=== PATIENT | male | born 1965 | race Caucasian/White ===

== ENCOUNTER 2020-07-05 09:28 | Outpatient (REF) | payer OTHER, SELFPAY | END 2020-07-05 09:29 | disposition home or self-care (01) | LOC: HO.WFDLDS 09:28 | PROVIDERS: Visit Provider Internal Medicine | DX: Z20.828 Contact with and (suspected) exposure to other viral communicable diseases (principal) | CPT/HCPCS: 87635 ==

== ENCOUNTER 2020-09-15 07:35 | Outpatient (REF) | payer OTHER, SELFPAY ==
[2020-09-15 08:34] LABS: MANUAL DIFF FLAG NO
[2020-09-15 08:38] LABS: Basophils Percent Auto 0.5 % (0-2); Eosinophils Absolute Auto 0.2 X10*3/uL (0.0-0.4); Eosinophils Percent Auto 3.1 % (0-4); Hematocrit 46.7 % (42-52); Hemoglobin 15.4 g/dl (14.0-18.0); Imm Gran Abs Auto 0.06 X10*3/uL (0.00-0.03); Lymphocytes Absolute Auto 1.9 X10*3/uL (1.2-4.9); Lymphocytes Percent Auto 31.1 % (20-40); Mean Corpuscular Volume 94.2 fL (80-98); Mean Platelet Volume 9.3 fL (9.4-12.4); Monocytes Absolute Auto 0.6 X10*3/uL (0.1-1.2); Monocytes Percent Auto 9.9 % (2-11); Neutrophils Absolute Auto 3.3 X10*3/uL (2.0-8.3); Neutrophils Percent Auto 54.4 % (45-73); Platelet Count 293 X10*3/uL (160-400); Red Blood Count 4.96 X10*6/uL (4.60-5.80); Red Cell Distribution Width 12.7 % (11.0-16.0); White Blood Count 6.1 X10*3/uL (4.8-10.8)
[2020-09-15 09:08] LABS: Alanine Aminotransferase 71 U/L (0-40); Albumin Level 4.4 g/dL (3.5-5.0); Alkaline Phosphatase 60 U/L (39-117); Anion Gap 11 (12-20); Aspartate Amino Transferase 43 U/L (5-37); Bilirubin Total 0.6 mg/dL (0.0-1.0); Blood Urea Nitrogen 18 mg/dL (9-16); Calcium 9.1 mg/dL (8.4-10.2); Carbon Dioxide 28 mmol/L (22-29); Chloride 104 mmol/L (96-108); Cholesterol 225 mg/dL; Estimated Glomerular Filt Rate > 60; Glucose Random 101 mg/dL (60-115); HDL Cholesterol 54 mg/dL; LDL Cholesterol Calculated 139 mg/dl; Potassium 4.7 mmol/l (3.3-5.1); Sodium 138 mmol/L (135-145); Total Protein 7.1 g/dL (6.5-8.0); Triglycerides 163 mg/dL
[2020-09-15 09:30] LABS: Free T4 (Free Thyroxine) 0.84 ng/dL (0.71-1.85); Prostate Specific Antigen Scr 1.58 ng/mL (<0.05-4.0)
[2020-09-15 10:53] LABS: Folate 15.9 ng/mL (> or = 4.0); Vitamin B12 284 pg/mL (200-900)
== END 2020-09-15 07:36 | disposition home or self-care (01) ==
LOC: HO.LAB 07:35
PROVIDERS: PCP Internal Medicine; Visit Provider Internal Medicine
DX: E78.00 Pure hypercholesterolemia, unspecified (principal)
CPT/HCPCS: 36415; 80053; 80061; 82607; 82746; 84153; 84439; 84443; 85025

== ENCOUNTER → 2020-10-12 10:18 | Outpatient (REF) | payer OTHER, SELFPAY ==
--- NOTE | 2020-10-12 10:25 | XR_ITS ---
EXAMINATION: XR CHEST CLINICAL INFORMATION: Shortness of breath COMPARISON: None TECHNIQUE: 2 views of the chest were obtained. FINDINGS: No significant abnormality is noted involving the heart, lungs, mediastinum, bony thorax or soft tissues. XR/XR chest 2V IMPRESSION: Unremarkable chest examination.
--- NOTE | 2020-10-12 10:41 | ECG_ITS ---
Test Reason : CP Blood Pressure : / mmHG Vent. Rate : 072 BPM Atrial Rate : 072 BPM P-R Int : 142 ms QRS Dur : 086 ms QT Int : 404 ms P-R-T Axes : 056 016 022 degrees QTc Int : 442 ms Normal sinus rhythm Normal ECG When compared with ECG of 08-APR-2018 09:58, No significant change was found Referred By: Yenni Henderson Electronically Signed By:ERNESTINE ERAZO
== END ==
LOC: HO.CARD 10:18
PROVIDERS: Visit Provider Internal Medicine
DX: R06.02 Shortness of breath (principal)
CPT/HCPCS: 71046; 93005

== ENCOUNTER 2020-10-21 15:57 | Outpatient (REF) | payer OTHER, SELFPAY ==
--- NOTE | 2020-10-21 | PFT_ITS ---
FLOWS: FEV1 101% of predicted at 3.60 L. FVC 95% of predicted at 4.39 L. FEV1 to FVC ratio of 0.82. No bronchodilator response. LUNG VOLUMES: Total lung capacity 100% of predicted at 6.58 L. Residual volume 101% of predicted at 2.05 L. Slow vital capacity 99% of predicted at 4.53 L. Expiratory reserve volume 42% of predicted at 0.56 L. Diffusion capacity is normal. IMPRESSION: No obstructive or restrictive ventilatory defect. No bronchodilator response. Essentially normal pulmonary function test. MD [facility] / [id number]
== END 2020-10-21 15:58 | disposition home or self-care (01) ==
LOC: HO.RESP 15:57
PROVIDERS: Visit Provider Internal Medicine
DX: R06.02 Shortness of breath (principal)
CPT/HCPCS: 94060; 94727; 94729

== ENCOUNTER → 2020-10-29 08:43 | Outpatient (REF) | payer OTHER, SELFPAY ==
--- NOTE | 2020-10-29 08:46 | CA_ITS ---
Acquisition Time: 2020-10-29 09:55:49 Total Exercise Time: 00:10:02 Test Indications: Dyspnea Medications: ROSUVASTATIN Protocol: CM Max HR: 160 BPM 96% of Pred: 166 BPM Max BP: 158/086 mmHG Max Work Load: 11.7 METS Exercise stress test with exercise 10 min 2 sec of Cm protocol, without anginal symptoms, without arrythmia, with normotensive response to exercise, without EKG changes meeting criteria for ischemia. Test reviewed with Dr Lundberg. Referred By: Yenni Henderson Overread By: JANET HODGE
== END ==
LOC: HO.CARD 08:43
PROVIDERS: PCP Internal Medicine; Visit Provider Internal Medicine
DX: R06.02 Shortness of breath (principal)
CPT/HCPCS: 93017

== ENCOUNTER → 2020-11-24 15:44 | Outpatient (BNVA) | payer OTHER, SELFPAY | PROVIDERS: PCP Internal Medicine; Visit Provider Internal Medicine ==

== ENCOUNTER 2021-01-05 07:38 | Outpatient (REF) | payer OTHER, SELFPAY ==
[2021-01-05 08:40] LABS: Alanine Aminotransferase 71 U/L (0-40); Albumin Level 4.4 g/dL (3.5-5.0); Alkaline Phosphatase 61 U/L (39-117); Anion Gap 13 (12-20); Aspartate Amino Transferase 37 U/L (5-37); Bilirubin Total 0.6 mg/dL (0.0-1.0); Blood Urea Nitrogen 19 mg/dL (9-16); Calcium 9.4 mg/dL (8.4-10.2); Carbon Dioxide 27 mmol/L (22-29); Chloride 106 mmol/L (96-108); Cholesterol 210 mg/dL; Estimated Glomerular Filt Rate > 60; Glucose Random 112 mg/dL (60-115); HDL Cholesterol 56 mg/dL; LDL Cholesterol Calculated 127 mg/dl; Potassium 4.7 mmol/L (3.3-5.1); Sodium 141 mmol/L (135-145); Total Protein 6.9 g/dL (6.5-8.0); Triglycerides 135 mg/dL
[2021-01-05 09:29] LABS: Estimated Average Glucose 114 mg/dL; Hemoglobin A1c % 5.6 %
== END 2021-01-05 07:39 | disposition home or self-care (01) ==
LOC: HO.LAB 07:38
PROVIDERS: PCP Internal Medicine; Visit Provider Internal Medicine
DX: R73.01 Impaired fasting glucose (principal); E78.00 Pure hypercholesterolemia, unspecified
CPT/HCPCS: 36415; 80053; 80061; 83036

== ENCOUNTER 2021-08-29 09:14 | Outpatient (REF) | payer OTHER, SELFPAY ==
[2021-08-29 09:27] LABS: MANUAL DIFF FLAG NO
[2021-08-29 09:54] LABS: Basophils Percent Auto 0.6 % (0-2); Eosinophils Absolute Auto 0.2 X10*3/uL (0.0-0.4); Eosinophils Percent Auto 2.8 % (0-4); Hematocrit 45.4 % (42.0-52.0); Hemoglobin 14.5 g/dl (14.0-18.0); Imm Gran Abs Auto 0.03 X10*3/uL (0.00-0.03); Imm Gran Pct Auto 0.4 % (0.0-0.4); Lymphocytes Absolute Auto 1.8 X10*3/uL (1.2-4.9); Lymphocytes Percent Auto 26.3 % (20-40); Mean Corpuscular HGB Conc 31.9 g/dl (31.0-36.0); Mean Corpuscular Hemoglobin 30.1 pg (27.0-33.0); Mean Corpuscular Volume 94.2 fL (80.0-98.0); Mean Platelet Volume 9.2 fL (9.4-12.4); Monocytes Absolute Auto 0.7 X10*3/uL (0.1-1.2); Monocytes Percent Auto 9.5 % (2-11); Neutrophils Absolute Auto 4.2 x10*3/uL (2.0-8.3); Neutrophils Percent Auto 60.4 % (45-73); Platelet Count 347 X10*3/uL (160-400); Red Blood Count 4.82 X10*6/uL (4.60-5.80); Red Cell Distribution Width 12.5 % (11.0-16.0); White Blood Count 6.9 X10*3/uL (4.8-10.8)
[2021-08-29 10:09] LABS: Estimated Average Glucose 117 mg/dL; Hemoglobin A1C 151.3007 umol/L; Hemoglobin A1c % 5.7 %
[2021-08-29 10:22] LABS: Alanine Aminotransferase 71 U/L (0-40); Albumin Level 4.4 g/dL (3.5-5.0); Alkaline Phosphatase 78 U/L (39-117); Anion Gap 13 (12-20); Aspartate Amino Transferase 32 U/L (5-37); Bilirubin Direct 0.3 mg/dL (0.0-0.5); Bilirubin Total 0.7 mg/dL (0.0-1.0); Blood Urea Nitrogen 16 mg/dL (9-16); Calcium 9.9 mg/dL (8.4-10.2); Carbon Dioxide 26 mmol/L (22-29); Chloride 108 mmol/L (96-108); Cholesterol 217 mg/dL; Estimated Glomerular Filt Rate > 60; Glucose Random 99 mg/dL (60-115); HDL Cholesterol 44 mg/dL; LDL Cholesterol Calculated 117 mg/dl; Potassium 4.7 mmol/L (3.3-5.1); Sodium 142 mmol/L (135-145); Triglycerides 283 mg/dL
[2021-08-29 10:42] LABS: Free T4 (Free Thyroxine) 0.85 ng/dL (0.71-1.85); Prostate Specific Antigen Scr 1.76 ng/mL (<0.05-4.0); Thyroid Stimulating Hormone 1.25 uIU/mL (0.32-4.0)
[2021-08-29 10:55] LABS: Folate 17.8 ng/mL (> or = 4.0); Vitamin B12 264 pg/mL (200-900)
== END 2021-08-29 09:15 | disposition home or self-care (01) ==
LOC: HO.LAB 09:14
PROVIDERS: PCP Internal Medicine; Visit Provider Internal Medicine
DX: E78.00 Pure hypercholesterolemia, unspecified (principal); R73.01 Impaired fasting glucose; R79.89 Other specified abnormal findings of blood chemistry; M54.9 Dorsalgia, unspecified
CPT/HCPCS: 36415; 80053; 80061; 82248; 82607; 82746; 83036; 84153; 84439; 84443; 85025

== ENCOUNTER 2022-06-12 07:00 | Outpatient (REF) | payer OTHER, SELFPAY ==
[2022-06-12 07:16] LABS: MANUAL DIFF FLAG NO
[2022-06-12 07:47] LABS: Basophils Percent Auto 0.6 % (0-2); Eosinophils Absolute Auto 0.1 X10*3/uL (0.0-0.4); Eosinophils Percent Auto 2.6 % (0-4); Hematocrit 48.5 % (42.0-52.0); Hemoglobin 15.7 g/dl (14.0-18.0); Imm Gran Abs Auto 0.04 X10*3/uL (0.00-0.03); Imm Gran Pct Auto 0.8 % (0.0-0.4); Lymphocytes Absolute Auto 1.6 X10*3/uL (1.2-4.9); Lymphocytes Percent Auto 29.8 % (20-40); Mean Corpuscular HGB Conc 32.4 g/dl (31.0-36.0); Mean Corpuscular Hemoglobin 30.5 pg (27.0-33.0); Mean Corpuscular Volume 94.4 fL (80.0-98.0); Mean Platelet Volume 9.3 fL (9.4-12.4); Monocytes Absolute Auto 0.6 X10*3/uL (0.1-1.2); Monocytes Percent Auto 12.1 % (2-11); Neutrophils Absolute Auto 2.9 x10*3/uL (2.0-8.3); Neutrophils Percent Auto 54.1 % (45-73); Platelet Count 307 X10*3/uL (160-400); Red Blood Count 5.14 X10*6/uL (4.60-5.80); Red Cell Distribution Width 13.2 % (11.0-16.0); White Blood Count 5.3 X10*3/uL (4.8-10.8)
[2022-06-12 07:51] LABS: Estimated Average Glucose 114 mg/dL; Hemoglobin A1C 152.5014 umol/L; Hemoglobin A1c % 5.6 %
[2022-06-12 08:20] LABS: Alanine Aminotransferase 46 U/L (0-40); Albumin Level 4.3 g/dL (3.5-5.0); Alkaline Phosphatase 60 U/L (39-117); Anion Gap 16 (12-20); Aspartate Amino Transferase 27 U/L (5-37); Bilirubin Total 0.8 mg/dL (0.0-1.0); Blood Urea Nitrogen 16 mg/dL (9-16); Calcium 9.3 mg/dL (8.4-10.2); Carbon Dioxide 23 mmol/L (22-29); Chloride 106 mmol/L (96-108); Cholesterol 215 mg/dL; Estimated Glomerular Filt Rate > 60; Glucose Random 97 mg/dL (60-115); HDL Cholesterol 55 mg/dL; LDL Cholesterol Calculated 127 mg/dl; Potassium 4.6 mmol/L (3.3-5.1); Sodium 140 mmol/L (135-145); Total Protein 6.9 g/dL (6.5-8.0); Triglycerides 168 mg/dL
[2022-06-12 08:43] LABS: Free T4 (Free Thyroxine) 0.87 ng/dL (0.71-1.85); Prostate Specific Antigen Scr 2.03 ng/mL (<0.05-4.0); Thyroid Stimulating Hormone 1.25 uIU/mL (0.32-4.0)
[2022-06-12 09:24] LABS: Folate 14.3 ng/mL (> or = 4.0); Vitamin B12 197 pg/mL (200-900)
== END 2022-06-12 07:01 | disposition home or self-care (01) ==
LOC: HO.LAB 07:00
PROVIDERS: PCP Internal Medicine; Visit Provider Internal Medicine
DX: E78.00 Pure hypercholesterolemia, unspecified (principal); E53.8 Deficiency of other specified B group vitamins; R73.01 Impaired fasting glucose; Z12.5 Encounter for screening for malignant neoplasm of prostate
CPT/HCPCS: 36415; 80053; 80061; 82607; 82746; 83036; 84153; 84439; 84443; 85025

== ENCOUNTER 2023-03-01 08:43 | Outpatient (REF) | payer OTHER, SELFPAY ==
[2023-03-01 10:22] LABS: Alanine Aminotransferase 50 U/L (0-40); Albumin Level 4.4 g/dL (3.5-5.0); Alkaline Phosphatase 61 U/L (39-117); Anion Gap 14 (12-20); Aspartate Amino Transferase 32 U/L (5-37); Bilirubin Total 0.5 mg/dL (0.0-1.0); Blood Urea Nitrogen 12 mg/dL (9-16); Calcium 9.7 mg/dL (8.4-10.2); Carbon Dioxide 23 mmol/L (22-29); Chloride 107 mmol/L (96-108); Estimated Glomerular Filt Rate > 60; Glucose Random 106 mg/dL (60-115); Potassium 4.4 mmol/L (3.3-5.1); Sodium 140 mmol/L (135-145)
[2023-03-01 10:40] LABS: Folate 14.3 ng/mL (> or = 4.0); Vitamin B12 325 pg/mL (200-900)
== END 2023-03-01 08:44 | disposition home or self-care (01) ==
LOC: HO.LAB 08:43
PROVIDERS: PCP Internal Medicine; Visit Provider Internal Medicine
DX: B35.1 Tinea unguium (principal)
CPT/HCPCS: 36415; 80053; 82607; 82746

== ENCOUNTER 2023-06-27 08:06 | Outpatient (REF) | payer OTHER, SELFPAY ==
[2023-06-27 08:28] LABS: MANUAL DIFF FLAG NO
[2023-06-27 08:58] LABS: Basophils Percent Auto 0.3 % (0-2); Eosinophils Absolute Auto 0.1 X10*3/uL (0.0-0.4); Eosinophils Percent Auto 1.7 % (0-4); Hematocrit 49.4 % (42.0-52.0); Hemoglobin 16.2 g/dl (14.0-18.0); Imm Gran Abs Auto 0.03 X10*3/uL (0.00-0.03); Imm Gran Pct Auto 0.5 % (0.0-0.4); Lymphocytes Absolute Auto 1.8 X10*3/uL (1.2-4.9); Lymphocytes Percent Auto 30.9 % (20-40); Mean Corpuscular HGB Conc 32.8 g/dl (31.0-36.0); Mean Corpuscular Hemoglobin 30.9 pg (27.0-33.0); Mean Corpuscular Volume 94.3 fL (80.0-98.0); Mean Platelet Volume 9.5 fL (9.4-12.4); Monocytes Absolute Auto 0.7 X10*3/uL (0.1-1.2); Monocytes Percent Auto 11.2 % (2-11); Neutrophils Absolute Auto 3.2 x10*3/uL (2.0-8.3); Neutrophils Percent Auto 55.4 % (45-73); Platelet Count 290 X10*3/uL (160-400); Red Blood Count 5.24 X10*6/uL (4.60-5.80); Red Cell Distribution Width 12.6 % (11.0-16.0); White Blood Count 5.8 X10*3/uL (4.8-10.8)
[2023-06-27 09:10] LABS: Estimated Average Glucose 111 mg/dL; Hemoglobin A1c % 5.5 % (<6.0)
[2023-06-27 09:27] LABS: Alanine Aminotransferase 42 U/L (0-40); Albumin Level 4.7 g/dL (3.5-5.0); Alkaline Phosphatase 57 U/L (39-117); Anion Gap 14 (12-20); Aspartate Amino Transferase 29 U/L (5-37); Bilirubin Total 0.7 mg/dL (0.0-1.0); Blood Urea Nitrogen 13 mg/dL (9-16); Calcium 10.1 mg/dL (8.4-10.2); Carbon Dioxide 28 mmol/L (22-29); Chloride 105 mmol/L (96-108); Cholesterol 215 mg/dL (<200); Estimated Glomerular Filt Rate > 60; Glucose Random 102 mg/dL (60-115); HDL Cholesterol 50 mg/dL (>40); LDL Cholesterol Calculated 129 mg/dL (<100); Potassium 4.7 mmol/L (3.3-5.1); Sodium 142 mmol/L (135-145); Total Protein 7.6 g/dL (6.5-8.0); Triglycerides 183 mg/dL (<150)
[2023-06-27 09:53] LABS: HBS Num1 0.13 mIU/mL (0-7.99); HBc Num1 0.05 S/CO (0.00-0.79); HBsAGNum1 0.27 S/CO (0.00-0.99); HIV AB/AG Nonreactive (Nonreactive); HIV Num 1 0.05 S/CO (0.00-0.99); Hepatitis B Core Antibody Nonreactive (Nonreactive); Hepatitis B Surface Antigen Negative (Negative); ~HepC Num1 0.05 S/CO (0.00-0.79); ~Hepatitis B Surface Antibody NONREACTIVE (Nonreactive); ~Hepatitis C Antibody Nonreactive (Nonreactive)
[2023-06-27 09:54] LABS: Syphilis Screen Nonreactive (Nonreactive)
[2023-06-27 09:55] LABS: Folate 13.1 ng/mL (> or = 4.0); Prostate Specific Antigen Scr 2.18 ng/mL (<0.05-4.0); Vitamin B12 363 pg/mL (200-900)
[2023-06-27 10:00] LABS: Free T4 (Free Thyroxine) 0.85 ng/dL (0.71-1.85); Thyroid Stimulating Hormone 1.21 uIU/mL (0.32-4.0)
== END 2023-06-27 08:07 | disposition home or self-care (01) ==
LOC: HO.LAB 08:06
PROVIDERS: PCP Internal Medicine; Visit Provider Internal Medicine
DX: Z12.5 Encounter for screening for malignant neoplasm of prostate (principal); Z11.4 Encounter for screening for human immunodeficiency virus [HIV]; E78.00 Pure hypercholesterolemia, unspecified; R79.89 Other specified abnormal findings of blood chemistry
CPT/HCPCS: 36415; 80053; 80061; 82607; 82746; 83036; 84153; 84439; 84443; 85025; 86704; 86706; 86780; 86803; 87340; 87389

== ENCOUNTER 2023-07-16 17:18 | Outpatient (AMB) | payer OTHER, SELFPAY ==
[2023-07-16 17:20] VITALS: BP 152/102; PULSE 78; O2SAT 99; BMI 25.7
--- NOTE | 2023-07-16 17:20 | A.OFFPC_ITS ---
Vital Signs 07/16/23 17:20 Height 5 ft 9 in Weight 174 lb BMI 25.7 BP 152/102 H Blood Pressure Location Lt brachial Position Sitting Pulse 78 Pulse Source Pulse Oximeter Pulse Oximetry (%) 99 Oxygen Delivery Method Room Air Intake Visit Reasons: PHYSICAL Intake Note: Patient here for a physical exam Bill Hiker Required: No Accompanied by: Self / Same As Patient Allergies levofloxacin [Levaquin] Allergy (Unknown, Verified 07/16/23 17:27) skin rash simvastatin Allergy (Unknown, Verified 07/16/23 17:27) elevated cpk Penicillins [PENICILLINS] Adverse Reaction (Intermediate, Verified 07/16/23 17:27) GI UPSET Medication List - Last Reconciled 07/16/23 by Yenni Henderson MD rosuvastatin 5 mg PO DAILY Tobacco use date assessed: 07/16/23 Dental Screening Dental Screen Date: 07/16/23 Did you have a dental visit in the last 12 months?: Yes Did you have a dental problem in the last 6 months where you did not have access to dental care?: No Was dental information given to patient?: Patient has dentist HPI PHYSICAL HPI Details 58-year-old male with GERD hypercholeste rolemia impaired glucose tolerance umbilical hernia erectile dysfunction last seen in May 2022. Patient is here for physical. Patient had an elevated liver function test and ultrasound was done in 2019 showing a gallbladder polyp as well as a fatty liver. This needs to be followed. 2-3 weeks palpitations, BP at home on urination- no good flow, toe nail fingus no difference too 3 months with no changes. - asking for HPV. BP at home 127/85, 149/97, 139/81, 149/83, 132/79, 152/95,131/99, 160/95. chest tightness, si no v no v none on arms lasting intermittent 15 min. , no chills-4-5 cups of coffee in am [facility] Medical History (Updated 07/16/23 @ 18:06 by Yenni Henderson MD) Fatty liver Back pain Cough Allergic rhinitis Overweight (BMI 25.0-29.9) Reactive airway disease Allergic rhinitis Anxiety Vitamin D deficiency GERD (gastroesophageal reflux disease) Peripheral vascular disease Hypercholesterolemia Surgical History H/O shoulder surgery History of varicose veins History of repair of rotator cuff History of elbow surgery History of tonsillectomy and adenoidectomy Family History Father History of coronary artery bypass graft [place] Mother Anxiety Other Mental health disorder Social History (Updated 07/16/23 @ 17:51 by Yenni Henderson MD) Housing: House Alcohol intake: current Alcohol intake frequency: a few times a month Patient Tobacco Use Status: Never used Tobacco e-Cigarette/Vaping Use: Never Used Second Hand Smoke Exposure: No service: No Current occupational status: employed Current occupational exposures/hazards: No Cognitive needs: No Hearing needs: Yes Vision needs: Yes Questionnaire Thrive Questionnaire Date Thrive assessed: 08/30/21 SAMIA-7 AMB Questionnaire SAMIA-7 Date SAMIA - 7 assessed: 06/23/22 Source: Developed by Drs. Baron Wharton, Jennifer Velásquez, Gilberto Sutherland and colleagues, with an educational jenni from [employer]. Review of Systems Const Denies poor appetite and Denies weakness Eyes Denies no additional complaints ENT Reports Normal hearing present, Denies dizziness, Denies nasal congestion, Denies tinnitus and Denies sore throat Card Denies chest pain, Denies syncope, Denies rapid heart rate and Denies dyspnea Resp Denies cough and Denies dyspnea GI Denies change in stool character, Reports constipation, Denies diarrhea, Denies nausea and Denies vomiting Denies dysuria and Denies urinary frequency Neuro Reports Normal hearing present, Denies confusion, Denies dizziness, Denies syncope and Denies weakness Psych Denies confusion Physical exam (Primary Care) Vital Signs: Last Vital Signs Pulse 78 07/16/23 17:20 BP 152/102 H 07/16/23 17:20 Pulse Ox 99 07/16/23 17:20 Oxygen Delivery Method Room Air 07/16/23 17:20 BMI result Body Mass Index 25.7 Tobacco/Smoking Status: Tobacco use Status Tobacco use date assessed 07/16/23 07/16/23 17:30 Patient Tobacco Use Status Never used Tobacco 07/16/23 17:30 e-Cigarette/Vaping Use Never Used 07/16/23 17:30 Thrive Assessment: Date of Thrive Assessment Date Thrive assessed 08/30/21 07/16/23 17:30 Const General: No confusion Orientation/consciousness: No confusion HENMT Head: Yes normocephalic Ears: external ears normal and TM's normal bilaterally Face and sinus: Yes normal facial exam Mouth: moist mucous membranes Throat: Yes tonsils normal Eyes Conjunctivae: conjunctivae normal Pupils: Equal, round and reactive pupils present and Pupil accommodation reflex normal Direct Ophthalmoscopy: normal light reflex Neck Neck: No lymphadenopathy Thyroid: Thyroid normal Chest Chest palpation & inspection: normal inspection of the chest Resp Effort & Inspection: normal respiratory effort and no audible wheezes Auscultation: clear to auscultation bilaterally, no crackles, no wheezes and lung sounds not diminished Cardio Rate: regular rate Rhythm: regular rhythm Peripheral pulses: radial pulses present and dorsalis pedis present GI Other: guaiac negative prostate Normal Palpation (GI): no masses Auscultation: normal bowel sounds and normoactive bowel sounds Rectal Exam - Male: Yes deferred Male General Exam: Yes normal external exam Skin General skin exam: no rashes or lesions noted Rashes: no rashes Neuro General: No confusion Cranial nerves: Yes Equal, round and reactive pupils present and Yes Normal hearing present Cognition (Neuro): normal cognition Gait exam (Neuro): Normal gait present Motor exam (neuro): 5/5 motor strength present throughout Deep tendon reflexes (DTR's): Right brachioradialis reflex intensity grade: 2+, Left brachioradialis reflex intensity grade: 2+, Right patellar reflex intensity grade: 2+ and Left patellar reflex intensity grade: 2+ Extrem General: No edema Office Procedures Flu Questionnaire Does the patient have a severe egg allergy?: No Immunizations flu vacc [id number] 6mos up(PF) 60 mcg(15 mcgx4)/0.5 mL IM syringe Performing Provider: Yenni Henderson MD [facility] Documented (not given) by: TOBIAS Cadena on 07/16/23 17:30 Reason Not Given: Patient Refused Assessment and Plan Assessment & Plan (1) Annual physical exam: Code(s): Z00.00 - Encounter for general adult medical examination without abnormal findings (2) Impaired fasting glucose: Code(s): R73.01 - Impaired fasting glucose Plan: Decrease the amount of carbohydrate intake, pasta, bread, rice and potatoes are all sugar and that is aside from all the sweet stuff, remember that fruits are good but they are Sweet also. (3) GERD (gastroesophageal reflux disease): Code(s): K21.9 - Gastro-esophageal reflux disease without esophagitis Qualifiers: Esophagitis presence: without esophagitis Qualified Code(s): K21.9 - Gastro-esophageal reflux disease without esophagitis Plan: Avoid the foods that causes that usually spicy foods, tomato products, juices, coffee, soda and foods that your sensitive to. After eating do not lie down, allow 3-4 hours before in lie down. And keep the head of bed above 30 degrees to avoid the acid from going up. (4) Hypercholesterolemia: Code(s): E78.00 - Pure hypercholesterolemia, unspecified Plan: Avoid fried foods, chicken skin, eggs, butter margarine, pastries and meat. Be it pork or beef they have a lot of cholesterol patient on rosuvastatin LDL goal of less than 130 and triglyceride of less than 150 (5) Blood pressure elevated without history of HTN: Code(s): R03.0 - Elevated blood-pressure reading, without diagnosis of hypertension Plan: discussed about decreasing caffeine slowly and not abrupt as it can cause withdrawal symptoms (6) Gallbladder polyp: Comment: 12/2018 Code(s): K82.4 - Cholesterolosis of gallbladder Plan: Will order for another ultrasound of the liver (7) Fatty liver: Code(s): K76.0 - Fatty (change of) liver, not elsewhere classified Plan: Low-fat diet and exercise (8) Decreased urine stream: Code(s): R39.198 - Other difficulties with micturition (9) Chest pain: Code(s): R07.9 - Chest pain, unspecified Plan: cardiology referral Orders: Orders Influenza [id number] Immunization Today Z23 - Encounter for immunization US abdomen complete Today K82.4 - Cholesterolosis of gallbladder, R79.89 - Other specified abnormal findings of blood chemistry ECG 3 day holter monitor Today R07.9 - Chest pain, unspecified US bladder Today R39.198 - Other difficulties with micturition Referrals Cardiology Referral R07.9 - Chest pain, unspecified Medications: New esomeprazole magnesium (Nexium) 20 mg PO DAILY 30 caps 3RF K21.9 - Gastro- esophageal reflux disease without esophagitis Coding Level of Care Code New Pt Prev Care 40-64y(64353) Diagnoses Annual physical exam Z00.00 Impaired fasting glucose R73.01 Gastroesophageal reflux disease without esophagitis K21.9 Esophagitis presence: without esophagitis Hypercholesterolemia E78.00 Blood pressure elevated without history of HTN R03.0 Gallbladder polyp K82.4 Fatty liver K76.0 Decreased urine stream R39.198 Chest pain R07.9
== END 2023-07-16 18:16 | disposition home or self-care (01) ==
LOC: HO.HMGH 17:18
PROVIDERS: PCP Internal Medicine; Visit Provider Internal Medicine
DX: Z00.00 Encounter for general adult medical examination without abnormal findings (principal); R73.01 Impaired fasting glucose; K21.9 Gastro-esophageal reflux disease without esophagitis; E78.00 Pure hypercholesterolemia, unspecified; R03.0 Elevated blood-pressure reading, without diagnosis of hypertension; K82.4 Cholesterolosis of gallbladder; K76.0 Fatty (change of) liver, not elsewhere classified; R39.198 Other difficulties with micturition; R07.9 Chest pain, unspecified
CPT/HCPCS: 99386

== ENCOUNTER → 2023-07-24 08:06 | Outpatient (REF) | payer OTHER, SELFPAY ==
--- NOTE | 2023-07-24 08:09 | HM_ITS ---
* Total monitoring time 3 days. * Underlying rhythm is sinus. Average ventricular rate 85/Min. Range 57 to 133/Min. About 18% of the time, rate > 100/Min. * Rare supraventricular and ventricular ectopy. * No significant pauses or AV blocks. * No patient markers or events in diary. MTDD
== END ==
LOC: HO.CARD 08:06
PROVIDERS: PCP Internal Medicine; Visit Provider Internal Medicine
DX: R07.9 Chest pain, unspecified (principal)
CPT/HCPCS: 93242

== ENCOUNTER → 2023-07-24 08:09 | Outpatient (BNV) | payer OTHER, SELFPAY | PROVIDERS: PCP Internal Medicine; Visit Provider Internal Medicine | DX: I47.10 Supraventricular tachycardia, unspecified (principal) | CPT/HCPCS: 93244 ==

== ENCOUNTER 2023-08-10 10:32 | Outpatient (REF) | payer OTHER, SELFPAY ==
--- NOTE | ~2023-08-10 | US_ITS ---
EXAMINATION: US PELVIS LIMITED (BLADDER) CLINICAL INFORMATION: Other difficulties with micturition. COMPARISON: None available. TECHNIQUE: Real-time imaging of the bladder. FINDINGS: BLADDER: Well distended. Mild diffuse irregularity of the bladder wall with thickness of 0.6 cm. Bilateral ureteral jets are demonstrated. Prevoid bladder volume is 150 mL. Postvoid bladder volume is 12 mL. ADDITIONAL FINDINGS: Prostate volume 45 mL, enlarged. US/US bladder IMPRESSION: Mild diffuse irregularity of the bladder wall with thickness of 0.6 cm. Prostate volume 45 mL, enlarged.
--- NOTE | ~2023-08-10 | US_ITS ---
EXAMINATION: US ABDOMEN COMPLETE CLINICAL INFORMATION: Other specified abnormal findings of blood chemistry. COMPARISON: Ultrasound abdomen complete 12/24/2018. TECHNIQUE: Real-time imaging of the abdominal viscera. Limited visualization due to bowel gas FINDINGS: PANCREAS: Limited visualization of pancreatic tail and head. Imaged portion of pancreatic body is unremarkable. ABDOMINAL AORTA: Limited visualization. Imaged portions of mid to distal abdominal aorta are non-aneurysmal. INFERIOR VENA CAVA: Visualized portions are normal. LIVER: Hepatomegaly, 17.3 cm. Increased hepatic parenchymal heterogeneity and echogenicity which could be associated with hepatic steatosis or hepatocellular disease and substantially limits visualization. GALLBLADDER: No gallstones. No gallbladder wall thickening. Previously identified gallbladder polyp is not clearly visualized today. COMMON BILE DUCT: Normal in caliber measuring 0.4 cm in diameter. RIGHT KIDNEY: No hydronephrosis. No renal calculi. Limited visualization. The kidney measures 10.8 cm in maximum dimension. LEFT KIDNEY: Left renal upper pole 0.7 x 0.8 x 0.8 cm cyst with benign features. There is no indication for follow up imaging. No hydronephrosis. No renal calculi. Limited visualization. The kidney measures 11.4 cm in maximum dimension. SPLEEN: Normal. The spleen measures 9.4 cm in maximum dimension. FREE FLUID: None. US/US abdomen complete IMPRESSION: 1. Hepatomegaly, 17.3 cm. Increased hepatic parenchymal heterogeneity and echogenicity which could be associated with hepatic steatosis or hepatocellular disease and substantially limits visualization. 2. Previously identified gallbladder polyp is not clearly visualized today.
== END 2023-08-10 10:33 | disposition home or self-care (01) ==
LOC: HO.US 10:32
PROVIDERS: PCP Internal Medicine; Visit Provider Internal Medicine
DX: K82.4 Cholesterolosis of gallbladder (principal); R39.198 Other difficulties with micturition; R79.89 Other specified abnormal findings of blood chemistry
CPT/HCPCS: 76700; 76857

== ENCOUNTER 2023-08-23 15:00 | Outpatient (AMB) | payer OTHER, SELFPAY ==
--- NOTE | 2023-08-23 15:03 | MHC.OFFVIS ---
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 Intake Note: NPV w/ EKG Applications Support Engineer Required: No Accompanied by: Self / Same As Patient Allergies levofloxacin [Levaquin] Allergy (Unknown, Verified 08/23/23 15:06) skin rash simvastatin Allergy (Unknown, Verified 08/23/23 15:06) elevated cpk Penicillins [PENICILLINS] Adverse Reaction (Intermediate, Verified 08/23/23 15:06) GI UPSET Medication List - Last Reconciled 08/23/23 by Teodoro Lundberg MD esomeprazole magnesium (Nexium) 20 mg PO DAILY rosuvastatin 5 mg PO DAILY HPI HPI Comments History of Present Illness Details Emerson is here for consultation regarding chest pain as well as some palpitations. He states that he recently had couple of episodes of chest tightness. This happened somewhat randomly. However, prior to that he was apparently doing some heavy physical activity including clearing up leaves and having heavy backpack. He thinks that might have been the reason. He did not have any discomfort during the actual exertion but much later. Hence does not sound to be truly exertional but cannot ignore either. Patient himself thinks that it is because of the heavy backpack pulling on his chest. Otherwise, he thinks he might also have heartburn type symptoms and hence he is on medicines for the same. He gets palpitations whenever he is lying on the left side and he can feel the left ear pounding. That seems more like anxiety. No previous history of cardiac problems like coronary disease or myocardial infarction or cardiomyopathy. He is fairly active regularly in his job without any issues. He drinks beer regularly after work. [facility] Medical History (Updated 08/13/23 @ 09:21 by Yenni Henderson MD) Fatty liver Back pain Cough Allergic rhinitis Overweight (BMI 25.0-29.9) Reactive airway disease Allergic rhinitis Anxiety Vitamin D deficiency GERD (gastroesophageal reflux disease) Peripheral vascular disease Hypercholesterolemia Surgical History H/O shoulder surgery History of varicose veins History of repair of rotator cuff History of elbow surgery History of tonsillectomy and adenoidectomy Family History Father History of coronary artery bypass graft [place] Mother Anxiety Other Mental health disorder Social History (Updated 07/16/23 @ 17:51 by Yenni Henderson MD) Housing: House Alcohol intake: current Alcohol intake frequency: a few times a month Patient Tobacco Use Status: Never used Tobacco e-Cigarette/Vaping Use: Never Used Second Hand Smoke Exposure: No service: No Current occupational status: employed Current occupational exposures/hazards: No Cognitive needs: No Hearing needs: Yes Vision needs: Yes Review of Systems Const Denies chills, Denies daytime sleepiness, Denies fatigue, Denies fever(s), Denies frequent falls, Denies night sweats, Denies snoring, Denies weakness, Denies weight gain and Denies weight loss Eyes Denies loss of vision ENT Denies dizziness and Denies hearing loss Card Reports chest pain, Denies chest pain with activity, Denies syncope, Denies edema, Denies claudication, Denies leg edema, Denies lightheadedness, Denies palpitations, Denies dyspnea, Denies dyspnea on exertion and Denies orthopnea Resp Denies cough, Denies excessive phlegm production, Denies dyspnea, Denies dyspnea on exertion, Denies snoring and Denies wheezing GI Denies abdominal pain, Denies hematochezia, Denies change in bowel habits, Denies change in stool character, Denies heartburn, Denies nausea and Denies vomiting Denies hematuria, Denies dysuria and Denies urinary frequency Musc Denies arthralgias, Denies muscle weakness, Denies numbness and Denies tingling Skin/Breast Denies nail changes and Denies rash Neuro Denies Abnormal speech present, Denies dizziness, Denies syncope, Denies frequent falls, Denies loss of vision, Denies memory loss, Denies numbness, Denies tingling and Denies weakness Psych Denies depression and Denies memory loss Endo Denies fatigue and Denies palpitations Aller/Immun Denies wheezing Physical Exam Vital Signs: Last Vital Signs Pulse 92 08/23/23 15:05 BP 122/80 08/23/23 15:05 BMI result Body Mass Index 26.0 Const General: comfortable and no acute distress Orientation/consciousness: patient oriented x3 HEENT Other: Unremarkable Head: Yes normal to inspection Neck Neck: Yes normal visual inspection Chest Chest palpation & inspection: normal inspection of the chest Resp Auscultation: clear to auscultation bilaterally Cardio Palpation: normal PMI Heart sounds: S1 normal heart sound present, S2 normal heart sound present, no gallops, no murmurs and no rubs GI Palpation (GI): Soft to palpation Back/Spine/Pelvis Other: unremarkable Skin General skin exam: no rashes or lesions noted Neuro General: patient oriented x3 Speech: No Abnormal speech present Extrem General: Yes normal to inspection Psych Mental Status: mental status grossly normal Office Procedures EKG Details: EKG with sinus rhythm at 92/Min; T inversions in the inferior leads. Seems slightly more prominent than the previous EKG from 2020. 22060-[id number], Complete Assessment & Plan Assessment & Plan (1) Chest pain: Code(s): R07.9 - Chest pain, unspecified Plan Somewhat atypical symptoms, but EKG shows inferior changes. However, he is very active physically with no exertional chest pain. Hence inconclusive. He needs further workup and we can do a coronary CTA. Echocardiogram for cardiac function assessment as well as wall motion. With regard to palpitations, he has already had a Holter which shows sinus tachycardia but otherwise unremarkable. Could be related to heavy physical activity level during the day with some components of alcohol excess. As he already has some fatty infiltration liver, advised to cut back On alcohol. Once testing is completed, we can see him back in follow-up. Orders: Orders CT Cardiac Coronary Angio Today I25.10 - Atherosclerotic heart disease of [place] coronary artery without angina pectoris, R07.9 - Chest pain, unspecified Basic Metabolic Panel Today R07.9 - Chest pain, unspecified CA echo transthoracic complete Today I25.10 - Atherosclerotic heart disease of [place] coronary artery without angina pectoris, R07.9 - Chest pain, unspecified Coding Level of Care Code New Pt Level 4 (08600) Diagnoses Chest pain R07.9 CPT Codes EKG - CPT: 37347-[id number], Complete ([id number])
[2023-08-23 15:05] VITALS: BP 122/80; PULSE 92; BMI 26.0
== END 2023-08-23 15:31 | disposition home or self-care (01) ==
PROVIDERS: PCP Internal Medicine; Visit Provider Internal Medicine
DX: R07.9 Chest pain, unspecified (principal); R94.31 Abnormal electrocardiogram [ECG] [EKG]
CPT/HCPCS: 93010; 99204

== ENCOUNTER → 2023-08-23 15:00 | Outpatient (BNVA) | payer OTHER, SELFPAY | PROVIDERS: PCP Internal Medicine; Visit Provider Internal Medicine | DX: R07.9 Chest pain, unspecified (principal); I25.10 Atherosclerotic heart disease of native coronary artery without angina pectoris | CPT/HCPCS: 93005 ==

== ENCOUNTER → 2023-09-11 13:57 | Outpatient (REF) | payer OTHER, SELFPAY ==
--- NOTE | 2023-09-11 14:00 | CA_ITS ---
Transthoracic Echocardiogram Patient (Last, First, Middle): Emerson Salazar, Gender: Male Date of : 1965 Age: 58 Procedure Date: 09/11/2023 Procedure Type: Transthoracic Echocardiogram Location: OP Height: 172.72 cm Weight: 83.92 kg BSA: 1.98 m2 Heart Rate: bpm BP: 130 / 86 mmHg Courier Driver: MEG Referring MD: Teodoro Lundberg MD Senior Reliability Engineer: Bogdan Hammond MD Symptoms: I25.10 - Atherosclerotic heart disease of [place] coronary artery without... Study Quality: Adequate ECG Rhythm: Sinus Conclusions: - Essentially normal study. Findings Left Ventricle Normal left ventricular size, thickness, and systolic function. The visually estimated ejection fraction is between 60-65%. There is no evidence of regional wall motion abnormalities. Spectral Doppler is indicative of a normal filling pattern. prominent LV false tendon noted. Peak GLS is -17.5%, borderline normal. Right Ventricle Normal right ventricular cavity size and systolic function. Atria The left atrium is normal in size. There is no evidence of interatrial shunt. The right atrium is normal in size. Aortic Valve Normal aortic valve structure and function. There is no aortic valve stenosis. There is no aortic valve regurgitation. Mitral Valve Normal mitral valve structure and function. There is trace mitral valve regurgitation. There is no mitral valve stenosis. Pulmonic Valve The pulmonic valve is likely normal. Tricuspid Valve Normal tricuspid valve structure. There is trace tricuspid valve regurgitation. The right ventricular systolic pressure is normal. The right ventricular systolic pressure is 22 mmHg. Normal right atrial pressure. There is no evidence of pulmonary hypertension. Great Vessels All visible segments of the aorta are normal in size. The pulmonary artery was not well visualized. There is no dilatation of the ascending aorta measuring 3.40 cm. Venous The inferior vena cava is normal in size and collapses greater than 50% with inspiration. Pericardium/Pleural There is no evidence of pericardial effusion. Measurements M-Mode Liner Measurements Normals - Women/Men Ao Root: 2.21 2.0-3.8 cm 2D Linear Measurements IVSd: 0.89 0.6-0.9/0.6-1.0 cm LVIDd: 4.09 3.9-5.3/4.2-5.9 cm LVIDd Index: 2.07 2.4-3.2/2.2-3.1 cm/m2 LVIDs: 2.53 2.0-3.6 cm LVPWd: 0.83 0.7-1.1 cm LA Diam: 3.50 2.7-3.8/3.0-4.0 cm LAIDs Index: 1.77 1.5-2.3 cm/m2 LV Mass: 133.23 67-162/88-224 g LV Mass Index: 67.29 43-95/49-115 g/m2 LVOT Diam: 2.10 3.0+(-)1.3 cm 2D Systolic Function EF 4C: 57.40 >55% EF 2C: 63.10 >55% EF BiP: 60.20 >55% Mitral Valve MV Pk E: 0.68 MV PK A: 0.56 MV Decel Time: 177.00 E/A: 1.20 E'Lateral: 10.60 E'Medial: 7.29 E/E' Med: 9.30 E/E' Lat: 6.40 PHT: 52.00 MVA PHT: 4.23 Decel [place]: 3.83 Aortic Valve AoV Pk Nav: 1.10 AoV Mn Nav: 0.79 AoV VTI: 0.24 AoV Pk Grad: 5.00 Aov Mn Grad: 3.00 KHANH Cont.VTI: 2.50 LVOT LVOT Pk Nav: 0.84 LVOT Mn Nav: 0.59 LVOT VTI: 0.18 LVOT Pk Grad: 3.00 LVOT Mn Grad: 2.00 LVOT Diam: 2.10 LVOT Area: 3.46 Diastolic Function MV Pk E: 0.68 MV Pk A: 0.56 E/A: 1.20 E'Medial: 7.29 E/E' Med: 9.30 E' Laterial: 10.60 E/E' Lat: 6.40 Right Ventricle TAPSE (mm): 20.30 TVS' Nav: 13.20 Tricuspid Valve TR Pk Nav: 2.17 TR Pk Grad: 19.00 RA Press: 3.00 RVSP: 22.00 Great Vessels Aorta Ao Root-MM: 2.21 2.0-3.7 cm Sinus of Valsalva: 3.21 2.0-3.[address] [place]: 2.63 1.7-3.4 cm Ao Asc: 3.40 2.1-3.4 cm Ao Arch: 3.10 Updated in Other Vendor System with Status of Final Bogdan Hammond MD electronically signed on 09/12/2023 5:27:46 PM with status of Final
== END ==
LOC: HO.CARD 13:57
PROVIDERS: PCP Internal Medicine; Visit Provider Internal Medicine
DX: R07.9 Chest pain, unspecified (principal); I25.10 Atherosclerotic heart disease of native coronary artery without angina pectoris
CPT/HCPCS: 93306; 93356

== ENCOUNTER → 2023-09-11 14:00 | Outpatient (BNV) | payer OTHER, SELFPAY | PROVIDERS: PCP Internal Medicine; Visit Provider Internal Medicine Cardiovascular Disease | DX: I25.10 Atherosclerotic heart disease of native coronary artery without angina pectoris (principal) | CPT/HCPCS: 93306 ==

== ENCOUNTER 2023-09-20 12:52 | Outpatient (AMB) | payer OTHER, SELFPAY ==
--- NOTE | 2023-09-20 12:52 | MHC.OFFVIS ---
Intake Vital Signs 09/20/23 12:53 Height 5 ft 9 in Weight 176 lb 5.917 oz BMI 26.0 BP 130/80 Blood Pressure Location Lt brachial Position Sitting Pulse 75 Intake Visit Reasons: fu post CTA/echo/Confirmed Intake Note: follow up Front Office Secretary Required: No Accompanied by: Self / Same As Patient Allergies levofloxacin [Levaquin] Allergy (Unknown, Verified 09/20/23 12:55) skin rash simvastatin Allergy (Unknown, Verified 09/20/23 12:55) elevated cpk Penicillins [PENICILLINS] Adverse Reaction (Intermediate, Verified 09/20/23 12:55) GI UPSET Medication List - Last Reconciled 09/20/23 by Teodoro Lundberg MD esomeprazole magnesium (Nexium) 20 mg PO DAILY PRN rosuvastatin 5 mg PO DAILY HPI HPI Comments History of Present Illness Details Emerson returns for follow-up. Recently seen in consultation regarding chest pain/palpitations. He states that he recently had couple of episodes of chest tightness. This happened somewhat randomly. However, prior to that he was apparently doing some heavy physical activity including clearing up leaves and having heavy backpack. He thinks that might have been the reason. He did not have any discomfort during the actual exertion but much later. Hence does not sound to be truly exertional but cannot ignore either. Patient himself thinks that it is because of the heavy backpack pulling on his chest. Otherwise, he thinks he might also have heartburn type symptoms and hence he is on medicines for the same. He gets palpitations whenever he is lying on the left side and he can feel the left ear pounding. That seems more like anxiety. No previous history of cardiac problems like coronary disease or myocardial infarction or cardiomyopathy. He is fairly active regularly in his job without any issues. He drinks beer regularly after work. He has completed an echocardiogram, Holter and coronary CT. [facility] Medical History (Updated 09/20/23 @ 13:29 by Teodoro Lundberg MD) Fatty liver Back pain Cough Allergic rhinitis Overweight (BMI 25.0-29.9) Reactive airway disease Allergic rhinitis Anxiety Vitamin D deficiency GERD (gastroesophageal reflux disease) Peripheral vascular disease Hypercholesterolemia Surgical History H/O shoulder surgery History of varicose veins History of repair of rotator cuff History of elbow surgery History of tonsillectomy and adenoidectomy Family History Father History of coronary artery bypass graft [place] Mother Anxiety Other Mental health disorder Social History (Updated 07/16/23 @ 17:51 by Yenni Henderson MD) Housing: House Alcohol intake: current Alcohol intake frequency: a few times a month Patient Tobacco Use Status: Never used Tobacco e-Cigarette/Vaping Use: Never Used Second Hand Smoke Exposure: No service: No Current occupational status: employed Current occupational exposures/hazards: No Cognitive needs: No Hearing needs: Yes Vision needs: Yes Review of Systems Const Denies weakness ENT Denies dizziness Card Denies chest pain, Denies chest pain with activity, Denies syncope, Denies rapid heart rate, Denies pedal edema, Denies edema, Denies leg edema, Denies lightheadedness, Reports palpitations, Denies dyspnea, Denies dyspnea on exertion and Denies orthopnea Resp Denies cough, Denies dyspnea and Denies dyspnea on exertion GI Denies hematochezia and Denies change in stool character Musc Denies abnormal gait, Denies muscle cramps, Denies muscle weakness, Denies numbness, Denies radiating pain into limb and Denies tingling Neuro Denies abnormal gait, Denies dizziness, Denies syncope, Denies numbness, Denies tingling and Denies weakness Endo Reports palpitations Physical Exam Vital Signs: Last Vital Signs Pulse 75 09/20/23 12:53 BP 130/80 09/20/23 12:53 BMI result Body Mass Index 26.0 Const General: comfortable and no acute distress Orientation/consciousness: patient oriented x3 HEENT Other: Unremarkable Head: Yes normal to inspection Neck Neck: Yes normal visual inspection Chest Chest palpation & inspection: normal inspection of the chest Resp Auscultation: clear to auscultation bilaterally Cardio Palpation: normal PMI Heart sounds: S1 normal heart sound present, S2 normal heart sound present, no gallops, no murmurs and no rubs GI Palpation (GI): Soft to palpation Back/Spine/Pelvis Other: unremarkable Skin General skin exam: no rashes or lesions noted Neuro General: patient oriented x3 Extrem General: Yes normal to inspection Psych Mental Status: mental status grossly normal Assessment & Plan Assessment & Plan (1) Atherosclerotic cardiovascular disease: Code(s): I25.10 - Atherosclerotic heart disease of [place] coronary artery without angina pectoris Plan Cardiac studies reviewed. Echocardiogram with LVEF of 60-65%. No wall motion abnormalities and otherwise unremarkable. Holter shows underlying sinus rhythm with an average rate of 85/Min. Sinus tachycardia but no other arrhythmias. But he also has a high level of physical activity at baseline. In the coronary CT, mild plaque at the LAD origin with minimal stenosis. Otherwise unremarkable. Overall, based on the above, do not believe the chest discomfort is cardiac in nature. With regard to palpitations, again nonspecific and advised to cut back on caffeine intake as he drinks numerous coffees per day. Anxiety may also play a role. For medications, he is on some statins but can increase the dose as LDL is still higher side. Target LDL around 60 mg/dL. Otherwise reassured. We can check him in 1 year. Medications: New rosuvastatin (Crestor) 20 mg PO DAILY 90 tabs 3RF Changed From esomeprazole magnesium (Nexium) 20 mg PO DAILY 30 caps 3RF K21.9 - Gastro-esophageal reflux disease without esophagitis To esomeprazole magnesium (Nexium) 20 mg PO DAILY PRN K21.9 - Gastro-esophageal reflux disease without esophagitis Discontinued rosuvastatin Discontinued Reason: Doctor's Order 5 mg PO DAILY 90 tabs 2RF Coding Level of Care Code Est Pt Level 3 (47081) Diagnoses Atherosclerotic cardiovascular disease I25.10
[2023-09-20 12:53] VITALS: BP 130/80; PULSE 75; BMI 26.0
== END 2023-09-20 13:28 | disposition home or self-care (01) ==
PROVIDERS: PCP Internal Medicine; Visit Provider Internal Medicine
DX: I25.10 Atherosclerotic heart disease of native coronary artery without angina pectoris (principal)
CPT/HCPCS: 99213

== ENCOUNTER → 2023-09-20 12:52 | Outpatient (BNVA) | payer OTHER, SELFPAY | PROVIDERS: PCP Internal Medicine; Visit Provider Internal Medicine ==

== ENCOUNTER 2024-02-11 16:45 | Outpatient (AMB) | payer OTHER, SELFPAY ==
--- NOTE | 2024-02-11 16:49 | A.OFFPC_ITS ---
Vital Signs 02/11/24 16:50 Height 5 ft 9 in Weight 174 lb 0.8 oz BMI 25.7 BP 136/84 Blood Pressure Location Lt brachial Position Sitting Pulse 105 H Pulse Source Pulse Oximeter Pulse Oximetry (%) 97 Oxygen Delivery Method Room Air Intake Visit Reasons: 3 month f/u Allergies levofloxacin [Levaquin] Allergy (Unknown, Verified 02/11/24 16:50) skin rash simvastatin Allergy (Unknown, Verified 02/11/24 16:50) elevated cpk Penicillins [PENICILLINS] Adverse Reaction (Intermediate, Verified 02/11/24 16:50) GI UPSET Tobacco use date assessed: 02/11/24 Dental Screening Dental Screen Date: 02/11/24 Did you have a dental visit in the last 12 months?: No Did you have a dental problem in the last 6 months where you did not have access to dental care?: No HPI 3 month f/u HPI Details 58-year-old male with impaired glucose t olerance GERD hypercholesterolemia gallbladder, follow up fatty liver coming in for follow-up. Last seen in June 2023 for physical exam. Review of the notes was seen by Cardiology in August. Echocardiogram normal ejection fraction no wall motion abnormality Holter sinus coronary CT mild plaque the LAD origin with minimal stenosis target LDL 60 with the gallbladder polyp ultrasound requested showing hepatomegaly hepatic steatosis gallbladder polyp not visually seen. Patient also complained of frequency and had an ultrasound of the bladder showing enlarged prostate 45 cc and mild irregularity of the bladder wall REPLACED BY [facility] Medical History (Updated 02/11/24 @ 16:59 by Yenni Henderson MD) Fatty liver Back pain Cough Allergic rhinitis Overweight (BMI 25.0-29.9) Reactive airway disease Allergic rhinitis Anxiety Vitamin D deficiency GERD (gastroesophageal reflux disease) Peripheral vascular disease Hypercholesterolemia Surgical History H/O shoulder surgery History of varicose veins History of repair of rotator cuff History of elbow surgery History of tonsillectomy and adenoidectomy Family History Father History of coronary artery bypass graft [place] Mother Anxiety Other Mental health disorder Social History (Updated 07/16/23 @ 17:51 by Yenni Henderson MD) Housing: House Alcohol intake: current Alcohol intake frequency: a few times a month Patient Tobacco Use Status: Never used Tobacco e-Cigarette/Vaping Use: Never Used Second Hand Smoke Exposure: No service: No Current occupational status: employed Current occupational exposures/hazards: No Cognitive needs: No Hearing needs: Yes Vision needs: Yes Questionnaire Thrive Questionnaire Date Thrive assessed: 08/30/21 AUDIT C Alcohol Use Questionnaire (AUDIT-C) 1. How often do you have a drink containing alcohol?: 4 or more times a week 2. How many drinks containing alcohol do you have on a typical day when you are drinking?: 1 or 2 3. How often do you have six or more drinks on one occasion?: Never Total Score: 4 SAMIA-7 AMB Questionnaire SAMIA-7 Date SAMIA - 7 assessed: 06/23/22 Source: Developed by Drs. Baron Wharton, Jennifer Velásquez, Gilberto Sutherland and colleagues, with an educational jenni from [employer]. Physical exam (Primary Care) Vital Signs: Last Vital Signs Pulse 105 H 02/11/24 16:50 BP 136/84 02/11/24 16:50 Pulse Ox 97 02/11/24 16:50 Oxygen Delivery Method Room Air 02/11/24 16:50 BMI result Body Mass Index 25.7 Tobacco/Smoking Status: Tobacco use Status Tobacco use date assessed 02/11/24 02/11/24 16:53 Patient Tobacco Use Status Never used Tobacco 02/11/24 16:53 e-Cigarette/Vaping Use Never Used 02/11/24 16:53 Thrive Assessment: Date of Thrive Assessment Date Thrive assessed 08/30/21 02/11/24 16:53 Const General: alert; No acute distress Eyes Conjunctivae: conjunctivae normal Resp Auscultation: clear to auscultation bilaterally Cardio Rate: regular rate Rhythm: regular rhythm GI Inspection: Yes normal to inspection Extrem General: Yes normal to inspection and No edema Assessment and Plan Assessment & Plan (1) Atherosclerotic cardiovascular disease: Code(s): I25.10 - Atherosclerotic heart disease of [place] coronary artery without angina pectoris Plan: Control the cholesterol, weight, blood pressure patient did see Cardiology workup with minimal CAD (2) Fatty liver: Comment: July 2023 Code(s): K76.0 - Fatty (change of) liver, not elsewhere classified Plan: Low-fat diet and exercise Did discuss about alcohol- decrease (3) GERD (gastroesophageal reflux disease): Code(s): K21.9 - Gastro-esophageal reflux disease without esophagitis Qualifiers: Esophagitis presence: without esophagitis Qualified Code(s): K21.9 - Gastro-esophageal reflux disease without esophagitis Plan: Avoid the foods that causes that usually spicy foods, tomato products, juices, coffee, soda and foods that your sensitive to. After eating do not lie down, allow 3-4 hours before in lie down. And keep the head of bed above 30 degrees to avoid the acid from going up. (4) Hypercholesterolemia: Code(s): E78.00 - Pure hypercholesterolemia, unspecified Plan: Avoid fried foods, chicken skin, eggs, butter margarine, pastries and meat. Be it pork or beef they have a lot of cholesterol with a CAD Cardiology advise LDL 60 (5) Impaired fasting glucose: Code(s): R73.01 - Impaired fasting glucose Plan: Decrease the amount of carbohydrate intake, pasta, bread, rice and potatoes are all sugar and that is aside from all the sweet stuff, remember that fruits are good but they are Sweet also. (6) BPH (benign prostatic hyperplasia): Code(s): N40.0 - Benign prostatic hyperplasia without lower urinary tract symptoms Plan: Discussion with the patient regarding the BPH. Discussed about medications to help with frequency but patient wants to hold off. If frequency gets worse to call and we may get the urologist involved. Orders: Orders Lipid Panel Today E78.00 - Pure hypercholesterolemia, unspecified Hemoglobin A1c Today R73.01 - Impaired fasting glucose Comprehensive Met. Panel Today R73.01 - Impaired fasting glucose Prostate Specific Antigen Scr Today N40.0 - Benign prostatic hyperplasia without lower urinary tract symptoms Coding Level of Care Code Est Pt Level 4 (20467) Diagnoses Atherosclerotic cardiovascular disease I25.10 Fatty liver K76.0 Gastroesophageal reflux disease without esophagitis K21.9 Esophagitis presence: without esophagitis Hypercholesterolemia E78.00 Impaired fasting glucose R73.01 BPH (benign prostatic hyperplasia) N40.0
[2024-02-11 16:50] VITALS: BP 136/84; PULSE 105; O2SAT 97; BMI 25.7
== END 2024-02-11 17:21 | disposition home or self-care (01) ==
PROVIDERS: PCP Internal Medicine; Visit Provider Internal Medicine
DX: I25.10 Atherosclerotic heart disease of native coronary artery without angina pectoris (principal); K76.0 Fatty (change of) liver, not elsewhere classified; K21.9 Gastro-esophageal reflux disease without esophagitis; E78.00 Pure hypercholesterolemia, unspecified; R73.01 Impaired fasting glucose; N40.0 Benign prostatic hyperplasia without lower urinary tract symptoms
CPT/HCPCS: 99214

== ENCOUNTER 2024-02-12 09:13 | Outpatient (REF) | payer OTHER, SELFPAY ==
[2024-02-12 09:57] LABS: Estimated Average Glucose 117 mg/dL; Hemoglobin A1c % 5.7 % (<6.0)
[2024-02-12 10:28] LABS: Alanine Aminotransferase 73 U/L (0-40); Albumin Level 4.1 g/dL (3.5-5.0); Alkaline Phosphatase 62 U/L (39-117); Anion Gap 14 (12-20); Aspartate Amino Transferase 48 U/L (5-37); Bilirubin Total 0.5 mg/dL (0.0-1.0); Blood Urea Nitrogen 14 mg/dL (9-16); Calcium 9.4 mg/dL (8.4-10.2); Carbon Dioxide 23 mmol/L (22-29); Chloride 109 mmol/L (96-108); Cholesterol 118 mg/dL (<200); Estimated Glomerular Filt Rate > 60; Glucose Random 101 mg/dL (60-115); HDL Cholesterol 46 mg/dL (>40); LDL Cholesterol Calculated 59 mg/dL (<100); Potassium 4.2 mmol/L (3.3-5.1); Sodium 142 mmol/L (135-145); Total Protein 6.9 g/dL (6.5-8.0); Triglycerides 66 mg/dL (<150)
[2024-02-12 10:50] LABS: Prostate Specific Antigen Scr 2.02 ng/mL (<0.05-4.0)
== END 2024-02-12 09:14 | disposition home or self-care (01) ==
LOC: HO.LAB 09:13
PROVIDERS: PCP Internal Medicine; Visit Provider Internal Medicine
DX: E78.00 Pure hypercholesterolemia, unspecified (principal); R73.01 Impaired fasting glucose; N40.0 Benign prostatic hyperplasia without lower urinary tract symptoms; Z12.5 Encounter for screening for malignant neoplasm of prostate
CPT/HCPCS: 36415; 80053; 80061; 83036; 84153

== ENCOUNTER 2024-04-02 14:10 | Outpatient (AMB) | payer OTHER, SELFPAY ==
[2024-04-02 14:13] VITALS: BP 122/80; PULSE 93; O2SAT 95; BMI 25.8
--- NOTE | 2024-04-02 14:13 | A.OFFPC_ITS ---
Vital Signs 3 04/02/24 14:13 Height 5 ft 9 in Weight 175 lb 0.1 oz BMI 25.8 BP 122/80 Blood Pressure Location Lt brachial Position Sitting Pulse 93 Pulse Source Pulse Oximeter Pulse Oximetry (%) 95 Oxygen Delivery Method Room Air Intake Visit Reasons: ? Blood clot behind L knee Intake Note: pt states lump behind left knee, inflamed with irritation. Allergies levofloxacin [Levaquin] Allergy (Unknown, Verified 02/11/24 16:50) skin rash simvastatin Allergy (Unknown, Verified 02/11/24 16:50) elevated cpk Penicillins [PENICILLINS] Adverse Reaction (Intermediate, Verified 02/11/24 16:50) GI UPSET Medication List - Last Reconciled 04/02/24 by Marilyn Sanchez PA-C esomeprazole magnesium (Nexium) 20 mg PO DAILY PRN rosuvastatin 10 mg PO DAILY Tobacco use date assessed: 02/11/24 Dental Screening Dental Screen Date: 02/11/24 HPI ? Blood clot behind L knee 2 HPI0 Details 58-year-old male with past medical histo ry of impaired glucose tolerance, GERD, hypercholesterolemia, and fatty liver last seen by Dr. Henderson 02/11/2024 coming in for acute visit.? Patient tells us he has a history of varicose vein removal about 5 years ago. He is varicose veins have been returning over the last year or so. Within the last few days patient has felt a firm, tender lump on the posterior medial aspect of the knee. He has not tried anything for the pain and does mention it was very red last night. Denies any shortness of breath or calf pain. [facility] Medical History Fatty liver Back pain Cough Allergic rhinitis Overweight (BMI 25.0-29.9) Reactive airway disease Allergic rhinitis Anxiety Vitamin D deficiency GERD (gastroesophageal reflux disease) Peripheral vascular disease Hypercholesterolemia Surgical History H/O shoulder surgery History of varicose veins History of repair of rotator cuff History of elbow surgery History of tonsillectomy and adenoidectomy Family History Father History of coronary artery bypass graft [place] Mother Anxiety Other Mental health disorder Social History Housing: House Alcohol intake: current Alcohol intake frequency: a few times a month Patient Tobacco Use Status: Never used Tobacco e-Cigarette/Vaping Use: Never Used Second Hand Smoke Exposure: No service: No Current occupational status: employed Current occupational exposures/hazards: No Cognitive needs: No Hearing needs: Yes Vision needs: Yes Questionnaire Thrive Questionnaire Date Thrive assessed: 04/02/24 I am a: Patient What is your living situation today?: I have a steady place to live Within the past 12 months, did the food you bought not last and you didn't have the money to get more?: Never true Within the past 12 months, did you worry whether your food would run out before you got money to buy more?: Never true THRIVE Score: 0 SAMIA-7 AMB Questionnaire SAMIA-7 Date SAMIA - 7 assessed: 06/23/22 Source: Developed by Drs. Baron Wharton, Jennifer Velásquez, Gilberto Sutherland and colleagues, with an educational jenni from [employer]. Review of Systems Const Denies chills, Denies fatigue and Denies fever(s) Card Denies chest pain, Denies syncope, Denies lightheadedness and Denies dyspnea Resp Denies cough and Denies dyspnea Musc Details: Lump behind left knee, tender to palpation and some redness last night Skin/Breast Reports system reviewed and no additional complaints, except as documented Neuro Denies syncope Endo Denies fatigue Physical exam (Primary Care) Vital Signs: Last Vital Signs Pulse 93 04/02/24 14:13 BP 122/80 04/02/24 14:13 Pulse Ox 95 04/02/24 14:13 Oxygen Delivery Method Room Air 04/02/24 14:13 BMI result Body Mass Index 25.8 Tobacco/Smoking Status: Tobacco use Status Tobacco use date assessed 02/11/24 04/02/24 14:14 Patient Tobacco Use Status Never used Tobacco 04/02/24 14:14 e-Cigarette/Vaping Use Never Used 04/02/24 14:14 Thrive Assessment: Date of Thrive Assessment Date Thrive assessed 04/02/24 04/02/24 14:18 Const General: cooperative, healthy appearing and no acute distress Nutritional Appearance: average body habitus Orientation/consciousness: patient oriented x3 HENMT Head: Yes normocephalic Eyes General: appearance normal, both eyes and all related structures Conjunctivae: conjunctivae normal Resp Effort & Inspection: normal respiratory effort Auscultation: clear to auscultation bilaterally Cardio Rate: regular rate Rhythm: regular rhythm Skin General skin exam: no rashes or lesions noted Neuro General: patient oriented x3 Extrem Other: Hard, mobile, tender lump posterior medial aspect of the left knee with no overlying erythema or warmth. Lump is easily palpable and superficial in nature Elbow/forearm/wrist images: 2 1. hard mobile lump Psych Affect: normal affect Attitude: cooperative Insight: Good insight present (Psych) Judgement: Good judgement present (Psych) Assessment and Plan Assessment & Plan (1) Lump of skin of lower extremity: Comment: left posterior knee Code(s): R22.40 - Localized swelling, mass and lump, unspecified lower limb Qualifiers: Laterality: left Qualified Code(s): R22.42 - Localized swelling, mass and lump, left lower limb Plan: On exam lump seems to be very superficial and easily mobile and tender to palpation. Discussed with Dr. Henderson. Patient was referred for urgent ultrasound of left lower extremity. Patient advised to use warm compresses, NSAIDs, and elevation of the legs for symptoms. Also discussed if varicose veins worsen patient may be referred back to vascular surgeon at his request. Plan Thank you for allowing me to participate in the care of this patient. I personally spent 20 minutes reviewing, examining and charting on this patient. Orders: Orders 2 US extremity nonvascular [place] Today R22.42 - Localized swelling, mass and lump, left lower limb Coding Level of Care Code Est Pt Level 3 (68900) Diagnoses Lump of skin of left lower extremity R22.42 Laterality: left
== END 2024-04-02 14:49 | disposition home or self-care (01) ==
PROVIDERS: PCP Internal Medicine
DX: R22.42 Localized swelling, mass and lump, left lower limb (principal)
CPT/HCPCS: 99213

== ENCOUNTER 2024-04-03 15:06 | Outpatient (REF) | payer OTHER, SELFPAY ==
--- NOTE | ~2024-04-03 | US_ITS ---
EXAMINATION: ULTRASOUND LEFT LOWER EXTREMITY CLINICAL INFORMATION: Localized swelling/mass or lump COMPARISON: None available. TECHNIQUE: High-frequency linear ultrasound transducer was used to examine the area of clinical concern. FINDINGS: The clinical lump corresponds to thrombosed superficial varicosities that extend from the distal medial thigh into the calf. The popliteal fossa was scanned which demonstrates normal-appearing popliteal artery and vein. US/US extremity nonvascular alvarado IMPRESSION: Thrombosed superficial varicosities corresponding to the palpable lump.
== END 2024-04-03 15:07 | disposition home or self-care (01) ==
LOC: HO.US 15:06
PROVIDERS: PCP Internal Medicine
DX: R22.42 Localized swelling, mass and lump, left lower limb (principal)
CPT/HCPCS: 76882

== ENCOUNTER 2024-09-11 15:32 | Outpatient (AMB) | payer OTHER, SELFPAY ==
[2024-09-11 15:37] VITALS: BP 122/70; PULSE 98; BMI 26.6
--- NOTE | 2024-09-11 15:37 | A.OFFVIS_ITS ---
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 He was found to have mild nonobstructive coronary disease. He now presents for follow-up. His last visit to our office was 09/20/2023. Today he reports he has been feeling well over the last year. He has no concerning chest discomfort at rest or with activity. Will get some mild shortness of breath if he over exerts but he relates this to deconditioning. No shortness of breath at other times. No PND, orthopnea or edema. No palpitations, lightheadedness, presyncope, syncope, falls. He reports being active throughout the day. He does drink a few beers daily. Compliant with meds. [facility] Medical History Fatty liver Back pain Cough Allergic rhinitis Overweight (BMI 25.0-29.9) Reactive airway disease Allergic rhinitis Anxiety Vitamin D deficiency GERD (gastroesophageal reflux disease) Peripheral vascular disease Hypercholesterolemia Surgical History H/O shoulder surgery History of varicose veins History of repair of rotator cuff History of elbow surgery History of tonsillectomy and adenoidectomy Family History Father History of coronary artery bypass graft Sarcoma Mother Anxiety Other Mental health disorder Social History Housing: House Alcohol intake: current Alcohol intake frequency: a few times a month Patient Tobacco Use Status: Never used Tobacco e-Cigarette/Vaping Use: Never Used Second Hand Smoke Exposure: No service: No Current occupational status: employed Current occupational exposures/hazards: No Cognitive needs: No Hearing needs: Yes Vision needs: Yes Review of Systems Const All systems reviewed & are unremarkable except as noted in HPI and below ENT Denies dizziness Card Denies chest pain, Denies chest pain at rest, Denies chest pain with activity, Denies rapid heart rate, Denies pedal edema, Denies edema, Denies leg edema, Denies lightheadedness, Denies palpitations, Denies dyspnea, Denies dyspnea on exertion and Denies orthopnea Resp Denies cough, Denies dyspnea and Denies dyspnea on exertion GI Denies hematochezia and Denies change in stool character Musc Denies abnormal gait, Denies limited range of motion, Denies muscle cramps, Denies muscle weakness, Denies numbness, Denies radiating pain into limb, Denies stiffness and Denies tingling Neuro Denies abnormal gait, Denies dizziness, Denies numbness and Denies tingling Endo Denies palpitations Physical Exam Vital Signs: Last Vital Signs Pulse 98 09/11/24 15:37 BP 122/70 09/11/24 15:37 BMI result Body Mass Index 26.6 Const General: cooperative, healthy appearing, comfortable and no acute distress Orientation/consciousness: patient oriented x3 Neck Neck: Yes normal visual inspection and Yes no JVD Resp Effort & Inspection: normal respiratory effort Auscultation: clear to auscultation bilaterally, no crackles, no rales, no rhonchi and no wheezes Cardio Jugular venous distension: no JVD Rate: regular rate Rhythm: regular rhythm Heart sounds: S1 normal heart sound present, S2 normal heart sound present, no murmurs and no rubs Neuro General: patient oriented x3 Extrem General: Yes normal to inspection, No no pedal edema and No calf tenderness Psych Appearance: grossly normal Mental Status: mental status grossly normal Speech and movement: Normal speech and movement present Office Procedures EKG Details: Today, read by me, normal sinus rhythm, can not rule out prior inferior infarct, overall no change from 08/23/2023, rate 98, QTC 439 millisecond [id number], Complete Assessment & Plan Assessment & Plan (1) Atherosclerotic cardiovascular disease: Code(s): I25.10 - Atherosclerotic heart disease of [place] coronary artery without angina pectoris Category: Medical Plan: Cardiac evaluation last year for atypical chest discomfort. He does have cardiac risk factors of hyperlipidemia, impaired fasting glucose. An exercise stress test had previously been done 10/29/2020 with good exercise tolerance and no EKG changes of ischemia. EKG done last year showed sinus rhythm, can not exclude prior anterior infarct, rate 92. Echocardiogram was done 09/11/2023 showing normal study. A CTA of the coronary arteries was done 09/14/2023 showing left main, left circumflex and RCA normal, small noncalcified plaque at the origin of the LAD associated with minimal, less than 25% stenosis. His LDL was elevated and he his rosuvastatin dose was increased on last visit. Labs done 02/12/2024 had shown LDL 59. EKG done today is unchanged from last EKG. Today he reports no anginal sounding symptoms. Signs and symptoms angina reviewed with him. Cardiac risk factor modification discussed. He would like cardiology follow-up in 1 year, will arrange. (2) Chest pain: Code(s): R07.9 - Chest pain, unspecified Category: Medical Plan: Previously reported atypical discomfort. Now reporting no chest discomfort at rest or with activity. (3) Hypercholesterolemia: Code(s): E78.00 - Pure hypercholesterolemia, unspecified Category: Medical Plan: [place] LDL goal less than 70 in patient with mild nonobstructive coronary disease and impaired fasting glucose. Last LDL check 01/2024 was well controlled. He was to have mildly elevated liver tests at that time. He does admit to drinking a few beers daily., labs had shown AST 48, ALT 73. At present will continue rosuvastatin 10 mg daily. Instructed on reduction in alcohol intake. Will plan for a repeat fasting lipid and liver profile in the near future. Patient informed. (4) Elevated alanine aminotransferase (ALT) level: Code(s): R74.01 - Elevation of levels of liver transaminase levels Category: Medical Plan: As above. Plan Time spent on chart review, documentation, interview and assessment Orders: Orders AMB EKG-In Office Today I25.10 - Atherosclerotic heart disease of [place] coronary artery without angina pectoris Liver Panel Today R07.9 - Chest pain, unspecified Lipid Panel Today I25.10 - Atherosclerotic heart disease of [place] coronary artery without angina pectoris Coding Level of Care Code Est Pt Level 4 (00799) Complex EM visit Add On G2211 Diagnoses Atherosclerotic cardiovascular disease I25.10 Chest pain R07.9 Hypercholesterolemia E78.00 Elevated alanine aminotransferase (ALT) level R74.01 CPT Codes EKG - CPT: 01747-[id number], Complete ([id number]) Time Spent (min) 36
== END 2024-09-11 16:02 | disposition home or self-care (01) ==
PROVIDERS: PCP Internal Medicine; Visit Provider Nurse Practitioner Family
DX: I25.10 Atherosclerotic heart disease of native coronary artery without angina pectoris (principal); R07.9 Chest pain, unspecified; E78.00 Pure hypercholesterolemia, unspecified; R74.01 Elevation of levels of liver transaminase levels
CPT/HCPCS: 93010; 99214

== ENCOUNTER → 2024-09-11 15:32 | Outpatient (BNVA) | payer OTHER, SELFPAY | PROVIDERS: PCP Internal Medicine; Visit Provider Nurse Practitioner Family | DX: I25.10 Atherosclerotic heart disease of native coronary artery without angina pectoris (principal); I10 Essential (primary) hypertension; R07.9 Chest pain, unspecified; E78.00 Pure hypercholesterolemia, unspecified; R74.01 Elevation of levels of liver transaminase levels | CPT/HCPCS: 93005 ==

== ENCOUNTER 2024-09-12 17:39 | Emergency (ER) | payer OTHER, SELFPAY ==
--- NOTE | ~2024-09-12 | CT_ITS ---
EXAMINATION: CT ABDOMEN AND PELVIS WITH CONTRAST CLINICAL INFORMATION: Abdominal pain. COMPARISON: None available. TECHNIQUE: Multidetector volumetric images were obtained from the superior aspect of the liver through the pubic symphysis following administration 85 mL of Omnipaque 350 intravenous contrast. Sagittal and coronal reformatted images were obtained on the technologist's workstation. Oral contrast: No This CT examination was performed using dose optimization techniques as appropriate, variously including the following: *Automated exposure control *Adjustment of mA and/or kV according to patient size (this includes techniques or standardized protocols for targeted exams where dose is matched to indication/reason for exam; i.e. extremities or head) *Use of iterative reconstruction technique DLP: 594 mGy-cm FINDINGS: LUNG BASES: The visualized lung bases are unremarkable. LIVER, GALLBLADDER, AND BILIARY TREE: The liver is normal in size, shape, and attenuation. No focal hepatic lesion or biliary ductal dilatation is present. The gallbladder is unremarkable with no evidence of radiopaque gallstones, gallbladder wall thickening, or obvious pericholecystic inflammatory changes. PANCREAS: Unremarkable. SPLEEN: Unremarkable. ADRENAL GLANDS: Unremarkable. KIDNEYS AND URETERS: The kidneys are normal in size, shape, and attenuation. No hydronephrosis, hydroureter, or calculi seen. No perinephric stranding. There is a 1.7 cm cyst mid to upper pole left kidney. BLADDER: There is mild urinary bladder wall thickening. GASTROINTESTINAL TRACT: There are scattered diverticula throughout the colon without evidence for acute diverticulitis. The appendix is visualized and is within normal limits. ABDOMINAL WALL: There is a small umbilical hernia containing fat. LYMPH NODES: Normal. VASCULAR: There is mild atherosclerotic plaque of the abdominal aorta. PELVIC VISCERA: There is mild prostate gland hypertrophy with the prostate gland measuring 3.5 x 5.2 x 4.3 cm. OSSEOUS STRUCTURES: Diffuse mild to moderate lumbar degenerative change. CT/CT abdomen pelvis w IV con IMPRESSION: 1. Diverticulosis without evidence of acute diverticulitis. 2. Mild prostate gland hypertrophy. Urinary bladder wall thickening. 3. Small umbilical hernia containing fat. Fleischner guidelines were followed. Electronically signed by: Royer Keane MD 09/13/2024 01:53 AM [facility]
[2024-09-12 17:58] VITALS: BP 160/90; PULSE 96; RESP 20; TEMP 36.6; O2SAT 97; BMI 25.8
--- NOTE | 2024-09-12 17:58 | ED_ITS ---
HPI - General Adult General Chief complaint: Abdominal Pain Stated complaint: Rt Side lower pain abd Time Seen by Provider: 09/12/24 23:26 Source: patient Mode of arrival: ambulatory Limitations: no limitations History of Present Illness ED Provider: HPI narrative: Patient's history of hyperlipidemia , fatty liver noticed pain in right lower abdomen since yesterday gradual onset no nausea no vomiting no diarrhea no fever no chills patient has been eating normally without any increase in the pain normal bowel movements slightly constipated no urinary symptoms no history of kidney stone Related Data Home Medications ?Medication ?Instructions ?Recorded ?Confirmed esomeprazole magnesium 20 mg 20 mg PO DAILY PRN 09/20/23 09/11/24 capsule,delayed release (Nexium) Previous Rx's ?Medication ?Instructions ?Recorded rosuvastatin 10 mg tablet 10 mg PO DAILY #90 tabs 10/01/23 Allergies Allergy/AdvReac Type Severity Reaction Status Date / Time levofloxacin [Levaquin] Allergy Unknown skin rash Verified 09/12/24 17:59 simvastatin Allergy Unknown elevated Verified 09/12/24 17:59 cpk Penicillins [PENICILLINS] AdvReac Intermediate GI UPSET Verified 09/12/24 17:59 Review of Systems 2 Review of Systems: Yes all other systems are reviewed and are negative PMFSH Past Medical History Medical History Fatty liver Back pain Cough Allergic rhinitis Overweight (BMI 25.0-29.9) Reactive airway disease Allergic rhinitis Anxiety Vitamin D deficiency GERD (gastroesophageal reflux disease) Peripheral vascular disease Hypercholesterolemia Surgical History H/O shoulder surgery History of varicose veins History of repair of rotator cuff History of elbow surgery History of tonsillectomy and adenoidectomy Family History Family History Father History of coronary artery bypass graft Sarcoma Mother Anxiety Other Mental health disorder Social History Social History Housing: House Alcohol intake: current Alcohol intake frequency: a few times a month Patient Tobacco Use Status: Never used Tobacco Smoked in Last 30 Days: No e-Cigarette/Vaping Use: Never Used Second Hand Smoke Exposure: No Use of substances other than those prescribed or required for medical reasons: No Advance Directives: No Advance Directives Information Provided: No service: No Current occupational status: employed Current occupational exposures/hazards: No Cognitive needs: No Hearing needs: Yes Vision needs: Yes Physical Exam ED Vital Signs: Vital Signs - 24 hr 09/12/24 17:58 09/12/24 21:41 09/12/24 22:23 Temperature 97.9 F 99.4 F 99.0 F Pulse Rate 96 76 81 Respiratory Rate 20 16 15 Blood Pressure 160/90 H 145/96 H 155/98 H Pulse Oximetry 97 97 98 Oxygen Delivery Method Room Air Room Air Room Air 09/13/24 00:00 09/13/24 02:00 09/13/24 02:21 Temperature 98.7 F 98.8 F 98.8 F Pulse Rate 79 81 81 Respiratory Rate 16 13 13 Blood Pressure 153/94 H 123/80 123/80 Pulse Oximetry 97 95 95 Oxygen Delivery Method Room Air Room Air Room Air BMI result Body Mass Index 25.8 Appearance: Alert. Oriented X3. No acute distress. Eyes: No pallor or icterus ENT: Pharynx normal. Oral Mucosa moist Neck: Normal inspection. Neck supple. CVS: Normal heart rate and rhythm. Pulses normal. Respiratory: No respiratory distress. Equal air entry bilateral, no wheezing/rales/rhonchi Abdomen: Soft and deep tenderness right lower abdomen without any rebound tenderness or guarding Bowel sounds are present, no mass palpable, no CVA tenderness Skin: Skin warm and dry. Normal skin color. Normal skin turgor. Extremities: No lower extremity edema. No calf tenderness Neuro: Oriented X 3. No motor deficit. No sensory deficit.No cerebellar signs , cranial nerves II-XII intact Course Course Course Narrative: This is a rapid medical exam performed by Malcom Wu NP: Additional HPI, ROS, PE not included below will be deferred to primary provider. Patient is a 59-year-old male presenting to the ED with complaint of RLQ abdominal/groin pain which woke him from sleep around 2 am. Some dysuria/hematuria two days ago. Denies nausea, vomiting, diarrhea, fevers. Plan: UA, labs Medications Administered Discontinued Medications Generic Name Dose Route Start Last Admin Trade Name Freq PRN Reason Stop Dose Admin Iohexol 85 ml 09/13/24 00:34 09/13/24 00:34 Iohexol 350 Mg/Ml 100 Ml Infus..Btl IV 09/13/24 00:35 85 ml ONCE ONE Administration Medical Decision Making Medical Decision Making [facility] Narrative: Patient's right lower abdominal pain with normal labs no guarding or rebound tenderness likely has diverticulosis/abdominal wall hernia which is not palpable will get CT scan of the abdomen CT scan showed only diverticulosis patient is stable to go home will advised to have increased fiber in the diet Differential Diagnosis Differential Diagnoses: The differential diagnosis associated with the presentation includes Appendicitis/ diverticulosis /diverticulitis/kidney stone/abdominal wall hernia Lab Data [facility] Lab Attestation statement: I reviewed the patient's lab results. 09/12/24 18:10 09/12/24 18:10 Labs: Lab Results 09/12/24 09/12/24 Range/Units 18:10 19:31 WBC 6.8 (4.8-10.8) X10*3/uL RBC 5.02 (4.60-5.80) X10*6/uL Hgb 15.6 (14.0-18.0) g/dl Hct 47.8 (42.0-52.0) % MCV 95.2 (80.0-98.0) fL MCH 31.1 (27.0-33.0) pg MCHC 32.6 (31.0-36.0) g/dl RDW 13.1 (11.0-16.0) % Plt Count 257 (160-400) X10*3/uL MPV 8.8 L (9.4-12.4) fL Immature Gran % (Auto) 0.7 H (0.0-0.4) % Neut % (Auto) 65.4 (45-73) % Lymph % (Auto) 17.3 L (20-40) % [place] % (Auto) 11.0 (2-11) % Eos % (Auto) 5.2 H (0-4) % Baso % (Auto) 0.4 (0-2) % Lymph # (Auto) 1.2 (1.2-4.9) X10*3/uL [place] # (Auto) 0.7 (0.1-1.2) X10*3/uL Eos # (Auto) 0.4 (0.0-0.4) X10*3/uL Baso # (Auto) 0.0 (0.0-0.2) X10*3/uL Abs Immat Gran (auto) 0.05 H (0.00-0.03) X10*3/uL Absolute Neuts (auto) 4.4 (2.0-8.3) x10*3/uL Absolute Nucleated RBC 0.000 (0.0-0.012) X10*3/uL Nucleated RBC % (auto) 0.0 (0.0-0.2) /100WBC Sodium 142 (135-145) mmol/L Potassium 4.2 (3.3-5.1) mmol/L Chloride 107 (96-108) mmol/L Carbon Dioxide 28 (22-29) mmol/L Anion Gap 11 L (12-20) BUN 15 (9-16) mg/dL Creatinine 1.38 (0.5-1.4) mg/dL Estim Creat Clear Calc 58.3 Estimated GFR 53 Random Glucose 115 (60-115) mg/dL Calcium 9.5 (8.4-10.2) mg/dL Total Bilirubin 0.3 (0.0-1.0) mg/dL AST 59 H (5-37) U/L ALT 119 H (0-40) U/L Alkaline Phosphatase 70 (39-117) U/L Total Protein 7.2 (6.5-8.0) g/dL Albumin 4.3 (3.5-5.0) g/dL Urine Color Yellow Urine Appearance Clear Urine pH 5.5 (5.0-9.0) Ur Specific [place] 1.020 (1.005-1.025) Urine Protein Negative (Neg-Trace) mg/dL Urine Glucose (UA) Negative (Negative) mg/dL Urine Ketones Negative (Negative) mg/dL Urine Blood Negative (Negative) Urine Nitrite Negative (Negative) Ur Leukocyte Esterase Trace H (Negative) Urine RBC 0-2 (0-2) /HPF Urine WBC 0-5 (0-5) /HPF Ur Squamous Epith Cells 0-2 (0-2) /HPF Urine Bacteria None Seen (None Seen) Hyaline Casts 0-2 (0-2) /LPF Radiology Impression Discussion of test interpretation with radiology: I have reviewed the radiologist's reading. Radiologist Impression: [id number] [place] [address] CT Scan Report Signed Patient: Emerson Salazar MR#: [id number] : 1965 Acct:[id number] Age/Sex: 59 / M ADM Date: 09/12/24 Loc: HO.ED Attending Dr: Ordering Physician: Alvaro Hanson MD Date of Service: 09/13/24 Procedure(s): CT abdomen pelvis w IV con Accession Number(s): [id number] cc: Yenni Henderson MD; Alvaro Hanson MD~ EXAMINATION: CT ABDOMEN AND PELVIS WITH CONTRAST CLINICAL INFORMATION: Abdominal pain. COMPARISON: None available. TECHNIQUE: Multidetector volumetric images were obtained from the superior aspect of the liver through the pubic symphysis following administration 85 mL of Omnipaque 350 intravenous contrast. Sagittal and coronal reformatted images were obtained on the technologist's workstation. Oral contrast: No This CT examination was performed using dose optimization techniques as appropriate, variously including the following: *Automated exposure control *Adjustment of mA and/or kV according to patient size (this includes techniques or standardized protocols for targeted exams where dose is matched to indication/reason for exam; i.e. extremities or head) *Use of iterative reconstruction technique DLP: 594 mGy-cm FINDINGS: LUNG BASES: The visualized lung bases are unremarkable. LIVER, GALLBLADDER, AND BILIARY TREE: The liver is normal in size, shape, and attenuation. No focal hepatic lesion or biliary ductal dilatation is present. The gallbladder is unremarkable with no evidence of radiopaque gallstones, gallbladder wall thickening, or obvious pericholecystic inflammatory changes. PANCREAS: Unremarkable. SPLEEN: Unremarkable. ADRENAL GLANDS: Unremarkable. KIDNEYS AND URETERS: The kidneys are normal in size, shape, and attenuation. No hydronephrosis, hydroureter, or calculi seen. No perinephric stranding. There is a 1.7 cm cyst mid to upper pole left kidney. BLADDER: There is mild urinary bladder wall thickening. GASTROINTESTINAL TRACT: There are scattered diverticula throughout the colon without evidence for acute diverticulitis. The appendix is visualized and is within normal limits. ABDOMINAL WALL: There is a small umbilical hernia containing fat. LYMPH NODES: Normal. VASCULAR: There is mild atherosclerotic plaque of the abdominal aorta. PELVIC VISCERA: There is mild prostate gland hypertrophy with the prostate gland measuring 3.5 x 5.2 x 4.3 cm. OSSEOUS STRUCTURES: Diffuse mild to moderate lumbar degenerative change. CT/CT abdomen pelvis w IV con IMPRESSION: 1. Diverticulosis without evidence of acute diverticulitis. 2. Mild prostate gland hypertrophy. Urinary bladder wall thickening. 3. Small umbilical hernia containing fat. Fleischner guidelines were followed. Electronically signed by: Royer Keane MD 09/13/2024 01:53 AM [facility] Discharge Plan Discharge Clinical Impression: Diverticulosis Patient Disposition: Home, Self-Care Instructions: Diverticulosis (ED) Additional Instructions: Your pain in lower abdomen is from diverticulosis no signs of diverticulitis no signs of appendicitis Eat lot of fibers Follow up with your PCP for further management as needed Prescriptions: No Action rosuvastatin 10 mg tablet 10 mg PO DAILY Qty: 90 3RF Rx Instructions: New dose 10 mg. esomeprazole magnesium [Nexium] 20 mg capsule,delayed release(DR/EC) 20 mg PO DAILY PRN Interventions: ED Discharge Assessment Last Done: 09/13/24 02:21 Discharge Date/Time: 09/13/24 02:22 Print Language: Lithuanian
[2024-09-12 18:15] LABS: Basophils Percent Auto 0.4 % (0-2); Eosinophils Absolute Auto 0.4 X10*3/uL (0.0-0.4); Eosinophils Percent Auto 5.2 % (0-4); Hematocrit 47.8 % (42.0-52.0); Hemoglobin 15.6 g/dl (14.0-18.0); Imm Gran Abs Auto 0.05 X10*3/uL (0.00-0.03); Imm Gran Pct Auto 0.7 % (0.0-0.4); Lymphocytes Absolute Auto 1.2 X10*3/uL (1.2-4.9); Lymphocytes Percent Auto 17.3 % (20-40); MANUAL DIFF FLAG NO; Mean Corpuscular HGB Conc 32.6 g/dl (31.0-36.0); Mean Corpuscular Hemoglobin 31.1 pg (27.0-33.0); Mean Corpuscular Volume 95.2 fL (80.0-98.0); Mean Platelet Volume 8.8 fL (9.4-12.4); Monocytes Absolute Auto 0.7 X10*3/uL (0.1-1.2); Neutrophils Absolute Auto 4.4 x10*3/uL (2.0-8.3); Neutrophils Percent Auto 65.4 % (45-73); Platelet Count 257 X10*3/uL (160-400); Red Blood Count 5.02 X10*6/uL (4.60-5.80); Red Cell Distribution Width 13.1 % (11.0-16.0); White Blood Count 6.8 X10*3/uL (4.8-10.8)
[2024-09-12 18:34] LABS: Alanine Aminotransferase 119 U/L (0-40); Albumin Level 4.3 g/dL (3.5-5.0); Alkaline Phosphatase 70 U/L (39-117); Anion Gap 11 (12-20); Aspartate Amino Transferase 59 U/L (5-37); Bilirubin Total 0.3 mg/dL (0.0-1.0); Blood Urea Nitrogen 15 mg/dL (9-16); Calcium 9.5 mg/dL (8.4-10.2); Carbon Dioxide 28 mmol/L (22-29); Chloride 107 mmol/L (96-108); Creatinine Clr Calc Pharmacy 58.3; Estimated Glomerular Filt Rate 53; Glucose Random 115 mg/dL (60-115); Potassium 4.2 mmol/L (3.3-5.1); Sodium 142 mmol/L (135-145); Total Protein 7.2 g/dL (6.5-8.0)
[2024-09-12 19:41] LABS: Appearance Urine Clear; Color Urine Yellow; Glucose Urine UA Negative (Negative); Leukocyte Esterase Urine Trace (Negative); Nitrite Urine Negative (Negative); PH 5.5 (5.0-9.0); UMIC TRIGGER UACC YES; Urine Blood Negative (Negative); Urine Ketones Negative (Negative); Urine Protein Negative (Neg-Trace)
[2024-09-12 19:46] LABS: Bacteria Urine None Seen (None Seen); Hyaline Casts Urine 0-2 /LPF (0-2); RBC Urine 0-2 /HPF (0-2); Squamous Epithelial Cell Urine 0-2 /HPF (0-2); WBC Urine 0-5 /HPF (0-5)
[2024-09-12 21:41] VITALS: BP 145/96; PULSE 76; RESP 16; TEMP 37.4; O2SAT 97
[2024-09-12 22:23] VITALS: BP 155/98; PULSE 81; RESP 15; TEMP 37.2; O2SAT 98
[2024-09-13] VITALS: BP 153/94; PULSE 79; RESP 16; TEMP 37.1; O2SAT 97
[2024-09-13] MEDS: iohexoL 350 MG/ML 100 ML INFUS..BTL 85 ML IV (00:34)
[2024-09-13 02:00] VITALS: BP 123/80; PULSE 81; RESP 13; TEMP 37.1; O2SAT 95
[2024-09-13 02:21] VITALS: BP 123/80; PULSE 81; RESP 13; TEMP 37.1; O2SAT 95
== END 2024-09-13 02:22 | disposition home or self-care (01) ==
PROVIDERS: Registered Nurse Emergency; Emergency Provider Internal Medicine; PCP Internal Medicine
DX: K57.90 Diverticulosis of intestine, part unspecified, without perforation or abscess without bleeding (principal); R10.31 Right lower quadrant pain; K42.9 Umbilical hernia without obstruction or gangrene
CPT/HCPCS: 36415; 74177; 80053; 81001; 85025; 99284; Q9967

== ENCOUNTER 2024-09-26 16:08 | Outpatient (AMB) | payer OTHER, SELFPAY ==
--- NOTE | 2024-09-26 16:10 | A.OFFPC_ITS ---
Vital Signs 09/26/24 16:11 09/26/24 16:37 Height 5 ft 9 in Weight 182 lb 4 oz BMI 26.9 BP 148/92 H 142/80 H Blood Pressure Location Lt brachial Lt brachial Position Sitting Sitting Pulse 90 Pulse Source Pulse Oximeter Pulse Oximetry (%) 96 Oxygen Delivery Method Room Air Intake Visit Reasons: annual exam Allergies levofloxacin [Levaquin] Allergy (Unknown, Verified 09/26/24 16:18) skin rash simvastatin Allergy (Unknown, Verified 09/26/24 16:18) elevated cpk Penicillins [PENICILLINS] Adverse Reaction (Intermediate, Verified 09/26/24 16:18) GI UPSET Medication List - Last Reconciled 09/26/24 by Yenni Henderson MD esomeprazole magnesium (Nexium) 20 mg PO DAILY PRN rosuvastatin 10 mg PO DAILY Tobacco use date assessed: 09/26/24 Dental Screening Dental Screen Date: 09/26/24 Did you have a dental visit in the last 12 months?: Yes Did you have a dental problem in the last 6 months where you did not have access to dental care?: No Was dental information given to patient?: Patient has dentist HPI annual exam HPI Details The patient is a 59-year-old male presenting with essential hypertension, benign prostatic hyperplasia, and concerns related to headaches and skin lesions. The patient reports a known history of hypertension, initially diagnosed some time ago. Blood pressure readings show variability with recent elevated readings; however, it was noted to be under control during a recent cardiology visit. The patient has also reported occasional headaches, with a significant one occurring on the day of the visit, accompanied by unilateral headache pain. These headaches are rare for the patient. The patient has a documented history of benign prostatic hyperplasia with prostate measuring 45 cc on the last evaluation, noted to cause urinary retention issues, including decreased urinary flow and nocturia. Previous consultations have highlighted the presence of bladder wall thickening due to urinary retention. He also describes a skin lesion on the neck, which has not demonstrated significant change in size or color, prompting reassurance during consultation. Past medical evaluations revealed mild lumbar degenerative changes causing lower back discomfort. The patient describes possible GERD symptoms, previously prescribed Nexium for symptomatic relief. A prior CT scan showed liver abnormalities, with elevated transaminases during past labs. A 1.7 cm asympto matic kidney cyst was identified. The family has a history of cardiac conditions on the paternal side. - Annual flu vaccinations discussed. - Encouraged regular cardiovascular exer cise: walking 3-4 miles every other day. - Dietary modifications recommended with increased vegetables and reduced red meat intake per hyperlipidemia history. - Followed-up on previous cardiology daphne dance to decrease alcohol consumption due to liver enzyme concerns. - Encouraged fiber-rich diet to manage d iverticular condition. - Scheduled for hearing test due to incr eased morning congestion and possible ear blockage from cerumen. - The patient is likely engaged in regul ar physical activity (walking routinely). - No tobacco or recreational drug use no sada. - Recent travel history reported, which coincided with dietary and alcohol indulgence. - Nutritional intake includes attempts a t regular vegetable consumption. - No details provided on employment or f amily status. - Ophthalmologic: Denies recent eye exam inations. - ENT: Reports ear blockage, feeling of congestion. - Respiratory: Denies shortness of breat h. - Cardiovascular: Denies chest pain. - Gastrointestinal: Denies dysphagia; re ports heartburn under medication. - Genitourinary: Reports urinary hesitan cy and decreased stream. - Musculoskeletal: Denies recent falls b ut notes lower back stiffness. - Neurological: Denies dizziness or sync ope. - Labs: Liver enzymes elevated in prior labs; transaminases 59/37 (with normal <37). - Imaging: Recent CT shows mild atherosc lerotic changes; 1.7 cm left kidney cyst. - Previous cardiologic tests revealed no significant coronary artery blockage. - Known: Bladder wall thickening due to urinary retention. COUNTS INCLUDE 234 BEDS AT THE [facility] Medical History Fatty liver Back pain Cough Allergic rhinitis Overweight (BMI 25.0-29.9) Reactive airway disease Allergic rhinitis Anxiety Vitamin D deficiency GERD (gastroesophageal reflux disease) Peripheral vascular disease Hypercholesterolemia Surgical History H/O shoulder surgery History of varicose veins History of repair of rotator cuff History of elbow surgery History of tonsillectomy and adenoidectomy Family History (Updated 09/26/24 @ 16:40 by Yenni Henderson MD) Father History of coronary artery bypass graft [place] Mother Anxiety Paternal Grandfather History of coronary artery bypass graft Paternal Uncle History of coronary artery bypass graft Other Mental health disorder Social History (Updated 09/26/24 @ 16:47 by Yenni Henderson MD) Housing: House Alcohol intake: current Alcohol intake frequency: a few times a month Comment: 2-3 beers a day Patient Tobacco Use Status: Never used Tobacco e-Cigarette/Vaping Use: Never Used Second Hand Smoke Exposure: No service: No Current occupational status: employed Current occupational exposures/hazards: No Cognitive needs: No Hearing needs: Yes Vision needs: Yes Questionnaire PHQ-9 Over the last 2 weeks, how often have you been bothered by any of the following problems? 1. Little interest or pleasure in doing things: not at all 2. Feeling down, depressed, or hopeless: not at all 3. Trouble falling or staying asleep, or sleeping too much: not at all 4. Feeling tired or having little energy: not at all 5. Poor appetite or overeating: not at all 6. Feeling bad about yourself - or that you are a failure or have let yourself or your family down: not at all 7. Trouble concentrating on things, such as reading the newspaper or watching television: not at all 8. Moving or speaking so slowly that other people could have noticed. Or the opposite - being so fidgety or restless that you have been moving around a lot more than usual: not at all 9. Thoughts that you would be better off or of hurting yourself in some way: not at all Total score: 0 Depression Screening Interpretation: Negative Depression Screening Done: Yes 61070 - PHQ-9 Billing: Yes Source: Developed by Drs. Baron Wharton, Jennifer Velásquez, Gilberto Sutherland and colleagues, with an educational jenni from [employer]. Thrive Questionnaire Date Thrive assessed: 09/26/24 I am a: Patient What is your living situation today?: I have a steady place to live Within the past 12 months, did the food you bought not last and you didn't have the money to get more?: I choose not to answer this question Within the past 12 months, did you worry whether your food would run out before you got money to buy more?: I choose not to answer this question Do you have trouble paying for medicines?: No Do you have trouble getting transportation to medical appointments?: No Do you have trouble paying your heating and electricity bill?: I choose not to answer this question Do you have trouble taking care of your child, family member or friend?: No Do you have trouble with day-to-day activities such as bathing, preparing meals, shopping, managing finances, etc.?: No Are you currently unemployed and looking for a job?: No Are you interested in more education?: No Please select the resources that you would like help with: None Currently or been in a relationship where the following occur: No concerns reported THRIVE Score: 0 AUDIT C Alcohol Use Questionnaire (AUDIT-C) 1. How often do you have a drink containing alcohol?: 4 or more times a week 2. How many drinks containing alcohol do you have on a typical day when you are drinking?: 3 or 4 3. How often do you have six or more drinks on one occasion?: Less than monthly Total Score: 6 SAMIA-7 AMB Questionnaire SAMIA-7 Date SAMIA - 7 assessed: 09/26/24 Feeling nervous, anxious, or on edge: 0 = Not at all Not being able to stop or control worryin = Not at all Worrying too much about different things: 0 = Not at all Trouble relaxin = Not at all Being so restless that it is hard to sit still: 0 = Not at all Becoming easily annoyed or irritable: 0 = Not at all Feeling afraid as if something awful might happen: 0 = Not at all Total SAMIA-7 score (0-4 normal; 5-9 mild; 10-14 moderate; 15-21 severe): 0 Source: Developed by Drs. Baron Wharton, Jennifer Velásquez, Gilberto Sutherland and colleagues, with an educational jenni from [employer]. SAMIA-7 Assessment Billing SAMIA-7 Assessment Tool: SAMIA-7 Assessment 97427 Review of Systems Const Denies poor appetite and Denies weakness Eyes Denies no additional complaints ENT Reports Normal hearing present, Denies dizziness, Denies nasal congestion, Denies tinnitus and Denies sore throat Card Denies chest pain, Denies syncope, Denies rapid heart rate and Denies dyspnea Resp Denies cough and Denies dyspnea GI Denies change in stool character, Reports constipation, Denies diarrhea, Denies nausea and Denies vomiting Denies dysuria and Denies urinary frequency Neuro Reports Normal hearing present, Denies confusion, Denies dizziness, Denies syncope and Denies weakness Psych Denies confusion Physical exam (Primary Care) Vital Signs: Last Vital Signs Pulse 90 09/26/24 16:11 BP 142/80 H 09/26/24 16:37 Pulse Ox 96 09/26/24 16:11 Oxygen Delivery Method Room Air 09/26/24 16:11 BMI result Body Mass Index 26.9 Tobacco/Smoking Status: Tobacco use Status Tobacco use date assessed 09/26/24 09/26/24 16:20 Patient Tobacco Use Status Never used Tobacco 09/26/24 16:47 e-Cigarette/Vaping Use Never Used 09/26/24 16:47 PHQ-9: PHQ-9 Score PHQ-9: Total score 0 09/26/24 16:36 Depression Screening Interpretation: Negative Thrive Assessment: Date of Thrive Assessment Date Thrive assessed 09/26/24 09/26/24 16:20 Currently or been in a relationship where the following occur: No concerns reported Const General: No confusion Orientation/consciousness: No confusion HENMT Head: Yes normocephalic Ears: external ears normal and TM's normal bilaterally Face and sinus: Yes normal facial exam Mouth: moist mucous membranes Throat: Yes tonsils normal Eyes Conjunctivae: conjunctivae normal Pupils: Equal, round and reactive pupils present and Pupil accommodation reflex normal Direct Ophthalmoscopy: normal light reflex Neck Neck: No lymphadenopathy Thyroid: Thyroid normal Chest Chest palpation & inspection: normal inspection of the chest Resp Effort & Inspection: normal respiratory effort and no audible wheezes Auscultation: clear to auscultation bilaterally, no crackles, no wheezes and lung sounds not diminished Cardio Rate: regular rate Rhythm: regular rhythm Peripheral pulses: radial pulses present and dorsalis pedis present GI Palpation (GI): no masses Auscultation: normal bowel sounds and normoactive bowel sounds Rectal Exam - Male: Yes deferred Skin General skin exam: no rashes or lesions noted Rashes: no rashes Neuro General: No confusion Cranial nerves: Yes Equal, round and reactive pupils present and Yes Normal hearing present Cognition (Neuro): normal cognition Gait exam (Neuro): Normal gait present Motor exam (neuro): 5/5 motor strength present throughout Deep tendon reflexes (DTR's): Right brachioradialis reflex intensity grade: 2+, Left brachioradialis reflex intensity grade: 2+, Right patellar reflex intensity grade: 2+ and Left patellar reflex intensity grade: 2+ Extrem General: No edema Coding Level of Care Code Est Pt Prev Care 40-64y(99739) Diagnoses Annual physical exam Z00.00 Hypercholesterolemia E78.00 Gastroesophageal reflux disease without esophagitis K21.9 Esophagitis presence: without esophagitis Overweight (BMI 25.0-29.9) E66.3 Atherosclerotic cardiovascular disease I25.10 Fatty liver K76.0 Vision changes H53.9 Additional Codes SAMIA-7 Assessment Billing - SAMIA-7 Assessment Tool: SAMIA-7 Assessment 26252 ([id number]) PHQ-9 - 17515 - PHQ-9 Billing: Yes ([id number]) Assessment & Plan Assessment & Plan (1) Annual physical exam: Code(s): Z00.00 - Encounter for general adult medical examination without abnormal findings Category: Medical (2) Hypercholesterolemia: Code(s): E78.00 - Pure hypercholesterolemia, unspecified Category: Medical (3) GERD (gastroesophageal reflux disease): Code(s): K21.9 - Gastro-esophageal reflux disease without esophagitis Category: Medical Qualifiers: Esophagitis presence: without esophagitis Qualified Code(s): K21.9 - Gastro-esophageal reflux disease without esophagitis (4) Overweight (BMI 25.0-29.9): Code(s): E66.3 - Overweight Category: Medical (5) Atherosclerotic cardiovascular disease: Code(s): I25.10 - Atherosclerotic heart disease of [place] coronary artery without angina pectoris Category: Medical (6) Fatty liver: Comment: July 2023 Code(s): K76.0 - Fatty (change of) liver, not elsewhere classified Category: Medical (7) Vision changes: Code(s): H53.9 - Unspecified visual disturbance Category: Medical Plan - Monitor blood pressure regularly; maintain current hypertension management protocol. - Referral to urology for reassessment of benign prostatic hyperplasia and possible urinary retention interventions. - Management of skin lesion with regular monitoring for changes in size or color; specialist referral if morphological changes occur. - Recheck liver function tests; monitor dietary habits to limit alcohol and high -fat foods, assist in enzyme evaluation. - Recommend fiber supplementation for diverticulosis; emphasize hydration. - Encourage continued exercise and a heart-healthy diet to manage mild atherosclerosis. - Discuss allergen reduction and possible antihistamines for symptomatic relief of allergic rhinitis. During the consultation, I reviewed the likely diagnosis of benign prostatic hyperplasia and its management, focusing on monitoring, potential medication adjustments, and the role of urology in ongoing care. We discussed the potential need for interventions should symptoms persist. I emphasized the importance of controlling hypertension through lifestyle modification. Dietary recommendations were focused on cardiovascular health, addressing elevated lipids, and supporting liver health. We revisited past liver enzyme elevation, encouraging dietary measures to manage elevated levels and minimize alcohol intake. The patient was advised on allergy management and the relevance of reducing c ongestion symptoms. - Monitor and record blood pressure regularly. - Schedule an appointment with the referred urologist for prostate evaluation. - Maintain a balanced diet with high fiber and low alcohol intake. - Continue with regular exercise, walking 3-4 miles multiple times a week. - Pay attention to the skin lesion for any changes. - Use [id number] antihistamines to relieve nasal congestion. - Schedule follow-up bloodwork for liver enzyme assessment as discussed in 2-3 weeks. - Seek immediate care if urinary symptoms worsen or new symptoms arise. Orders: Orders Comprehensive Met. Panel Today K21.9 - Gastro-esophageal reflux disease without esophagitis Complete Blood Count Auto Diff Today K21.9 - Gastro-esophageal reflux disease without esophagitis Referrals Urology Referral N40.0 - Benign prostatic hyperplasia without lower urinary tract symptoms Ophthalmology Referral H53.9 - Unspecified visual disturbance
[2024-09-26 16:11] VITALS: BP 148/92; PULSE 90; O2SAT 96; BMI 26.9
[2024-09-26 16:37] VITALS: BP 142/80
== END 2024-09-26 17:21 | disposition home or self-care (01) ==
PROVIDERS: PCP Internal Medicine; Visit Provider Internal Medicine
DX: Z00.00 Encounter for general adult medical examination without abnormal findings (principal); E78.00 Pure hypercholesterolemia, unspecified; K21.9 Gastro-esophageal reflux disease without esophagitis; E66.3 Overweight; I25.10 Atherosclerotic heart disease of native coronary artery without angina pectoris; K76.0 Fatty (change of) liver, not elsewhere classified; H53.9 Unspecified visual disturbance

== ENCOUNTER → 2024-09-26 16:08 | Outpatient (BNVA) | payer OTHER, SELFPAY | PROVIDERS: PCP Internal Medicine; Visit Provider Internal Medicine | DX: Z00.00 Encounter for general adult medical examination without abnormal findings (principal); E78.00 Pure hypercholesterolemia, unspecified; K21.9 Gastro-esophageal reflux disease without esophagitis; E66.3 Overweight; Z68.26 Body mass index [BMI] 26.0-26.9, adult; I25.10 Atherosclerotic heart disease of native coronary artery without angina pectoris; K76.0 Fatty (change of) liver, not elsewhere classified; H53.9 Unspecified visual disturbance; I10 Essential (primary) hypertension | CPT/HCPCS: 96127 ==

== ENCOUNTER 2024-10-30 09:39 | Outpatient (REF) | payer OTHER, SELFPAY ==
[2024-10-30 09:47] LABS: MANUAL DIFF FLAG NO
[2024-10-30 10:05] LABS: Basophils Percent Auto 0.6 % (0-2); Eosinophils Absolute Auto 0.2 X10*3/uL (0.0-0.4); Eosinophils Percent Auto 2.6 % (0-4); Hematocrit 48.5 % (42.0-52.0); Hemoglobin 15.9 g/dl (14.0-18.0); Imm Gran Abs Auto 0.04 X10*3/uL (0.00-0.03); Imm Gran Pct Auto 0.6 % (0.0-0.4); Lymphocytes Absolute Auto 1.7 X10*3/uL (1.2-4.9); Lymphocytes Percent Auto 26.4 % (20-40); Mean Corpuscular HGB Conc 32.8 g/dl (31.0-36.0); Mean Corpuscular Hemoglobin 30.6 pg (27.0-33.0); Mean Corpuscular Volume 93.4 fL (80.0-98.0); Mean Platelet Volume 9.3 fL (9.4-12.4); Monocytes Absolute Auto 0.7 X10*3/uL (0.1-1.2); Monocytes Percent Auto 11.1 % (2-11); Neutrophils Absolute Auto 3.7 x10*3/uL (2.0-8.3); Neutrophils Percent Auto 58.7 % (45-73); Platelet Count 285 X10*3/uL (160-400); Red Blood Count 5.19 X10*6/uL (4.60-5.80); Red Cell Distribution Width 12.6 % (11.0-16.0); White Blood Count 6.2 X10*3/uL (4.8-10.8)
[2024-10-30 10:50] LABS: Alanine Aminotransferase 69 U/L (0-40); Albumin Level 4.4 g/dL (3.5-5.0); Alkaline Phosphatase 59 U/L (39-117); Anion Gap 10 (12-20); Aspartate Amino Transferase 40 U/L (5-37); Bilirubin Direct 0.2 mg/dL (0.0-0.5); Bilirubin Total 0.7 mg/dL (0.0-1.0); Blood Urea Nitrogen 15 mg/dL (9-16); Calcium 9.8 mg/dL (8.4-10.2); Carbon Dioxide 26 mmol/L (22-29); Chloride 108 mmol/L (96-108); Cholesterol 195 mg/dL (<200); Estimated Glomerular Filt Rate > 60; Glucose Random 99 mg/dL (60-115); HDL Cholesterol 46 mg/dL (>40); LDL Cholesterol Calculated 104 mg/dL (<100); Potassium 4.3 mmol/L (3.3-5.1); Sodium 140 mmol/L (135-145); Total Protein 7.4 g/dL (6.5-8.0); Triglycerides 229 mg/dL (<150)
== END 2024-10-30 09:40 | disposition home or self-care (01) ==
LOC: HO.LAB 09:39
PROVIDERS: Nurse Practitioner Family; PCP Internal Medicine; Visit Provider Internal Medicine
DX: R07.9 Chest pain, unspecified (principal); I25.10 Atherosclerotic heart disease of native coronary artery without angina pectoris; K21.9 Gastro-esophageal reflux disease without esophagitis
CPT/HCPCS: 36415; 80053; 80061; 80076; 82248; 85025

== ENCOUNTER 2025-01-08 08:19 | Outpatient (REF) | payer OTHER, SELFPAY ==
[2025-01-08 11:45] LABS: Alanine Aminotransferase 62 U/L (0-40); Albumin Level 4.3 g/dL (3.5-5.0); Anion Gap 14 (12-20); Aspartate Amino Transferase 44 U/L (5-37); Bilirubin Total 0.7 mg/dL (0.0-1.0); Blood Urea Nitrogen 20 mg/dL (9-16); Calcium 9.6 mg/dL (8.4-10.2); Carbon Dioxide 23 mmol/L (22-29); Chloride 108 mmol/L (96-108); Cholesterol 190 mg/dL (<200); Estimated Glomerular Filt Rate > 60; Glucose Random 98 mg/dL (60-115); HDL Cholesterol 45 mg/dL (>40); LDL Cholesterol Calculated 103 mg/dL (<100); Potassium 4.3 mmol/L (3.3-5.1); Sodium 141 mmol/L (135-145); Triglycerides 214 mg/dL (<150)
[2025-01-08 11:48] LABS: Alkaline Phosphatase 63 U/L (39-117)
== END 2025-01-08 08:20 | disposition home or self-care (01) ==
LOC: HO.LAB 08:19
PROVIDERS: PCP Internal Medicine; Visit Provider Nurse Practitioner Family
DX: I25.10 Atherosclerotic heart disease of native coronary artery without angina pectoris (principal)
CPT/HCPCS: 36415; 80053; 80061

== ENCOUNTER 2025-06-16 15:57 | Outpatient (AMB) | payer OTHER, SELFPAY ==
[2025-06-16 16:10] VITALS: BP 134/76; PULSE 80; TEMP 36.3; O2SAT 98; BMI 26.4
--- NOTE | 2025-06-16 16:10 | A.OFFPC_ITS ---
Vital Signs 3 06/16/25 16:10 Height 5 ft 9 in Weight 179 lb BMI 26.4 BP 134/76 Blood Pressure Location Lt brachial Position Sitting Pulse 80 Pulse Source Pulse Oximeter Temp 97.3 F Temp Source Temporal Artery Scan Pulse Oximetry (%) 98 Oxygen Delivery Method Room Air Intake Visit Reasons: renal insuff, LFT elevation Hand Profiler Required: No Accompanied by: Self / Same As Patient Allergies levofloxacin (Levaquin) Allergy (Unknown, Verified 06/16/25 16:16) skin rash simvastatin Allergy (Unknown, Verified 06/16/25 16:16) elevated cpk Penicillins (PENICILLINS) Adverse Reaction (Intermediate, Verified 06/16/25 16:16) GI UPSET Medication List - Last Reconciled 06/16/25 by Marilyn Sanchez PA-C esomeprazole magnesium (Nexium) 20 mg PO DAILY PRN ezetimibe (Zetia) 10 mg PO DAILY rosuvastatin 10 mg PO DAILY sildenafil 50 mg PO DAILY PRN Tobacco use date assessed: 06/16/25 Dental Screening Dental Screen Date: 06/16/25 Did you have a dental visit in the last 12 months?: Yes Did you have a dental problem in the last 6 months where you did not have access to dental care?: No HPI renal insuff, LFT elevation 2 HPI0 Details 60-year-old male with past medical histo ry of hypercholesterolemia, GERD, anxiety, impaired glucose tolerance, fatty liver, BPH last seen 09/2024 coming in for follow up. Presenting with a follow-up visit. Acid reflux Currently well-managed without significant issues reported. Fatty liver disease Previously noted with elevated liver enzymes; advised to manage with diet and exercise. Umbilical hernia Present for several years, not painful but cosmetically concerning; considering surgical options. [facility] Medical History Fatty liver Back pain Cough Allergic rhinitis Overweight (BMI 25.0-29.9) Reactive airway disease Allergic rhinitis Anxiety Vitamin D deficiency GERD (gastroesophageal reflux disease) Peripheral vascular disease Hypercholesterolemia Surgical History H/O shoulder surgery History of varicose veins History of repair of rotator cuff History of elbow surgery History of tonsillectomy and adenoidectomy Family History Father History of coronary artery bypass graft Sarcoma Mother Anxiety Paternal Grandfather History of coronary artery bypass graft Paternal Uncle History of coronary artery bypass graft Other Mental health disorder Social History Housing: House Alcohol intake: current Alcohol intake frequency: a few times a month Comment: 2-3 beers a day Patient Tobacco Use Status: Never used Tobacco e-Cigarette/Vaping Use: Never Used Second Hand Smoke Exposure: No service: No Current occupational status: employed Current occupational exposures/hazards: No Cognitive needs: No Hearing needs: Yes Vision needs: Yes Questionnaire PHQ-9 Over the last 2 weeks, how often have you been bothered by any of the following problems? 1. Little interest or pleasure in doing things: not at all 2. Feeling down, depressed, or hopeless: not at all 3. Trouble falling or staying asleep, or sleeping too much: more than half the days 5. Poor appetite or overeating: not at all 6. Feeling bad about yourself - or that you are a failure or have let yourself or your family down: not at all 8. Moving or speaking so slowly that other people could have noticed. Or the opposite - being so fidgety or restless that you have been moving around a lot more than usual: not at all Source: Developed by Drs. Baron Wharton, Jennifer Velásquez, Gilberto Sutherland and colleagues, with an educational jenni from [employer]. Thrive Questionnaire Date Thrive assessed: 06/16/25 I am a: Patient What is your living situation today?: I have a steady place to live Within the past 12 months, did the food you bought not last and you didn't have the money to get more?: I choose not to answer this question Within the past 12 months, did you worry whether your food would run out before you got money to buy more?: I choose not to answer this question Do you have trouble paying for medicines?: No Do you have trouble getting transportation to medical appointments?: No Do you have trouble paying your heating and electricity bill?: I choose not to answer this question Do you have trouble taking care of your child, family member or friend?: No Do you have trouble with day-to-day activities such as bathing, preparing meals, shopping, managing finances, etc.?: No Are you currently unemployed and looking for a job?: No Are you interested in more education?: No Please select the resources that you would like help with: None Currently or been in a relationship where the following occur: No concerns reported THRIVE Score: 0 AUDIT C Alcohol Use Questionnaire (AUDIT-C) 1. How often do you have a drink containing alcohol?: Monthly or less 2. How many drinks containing alcohol do you have on a typical day when you are drinking?: 1 or 2 3. How often do you have six or more drinks on one occasion?: Less than monthly Total Score: 2 SAMIA-7 AMB Questionnaire SAMIA-7 Date SAMIA - 7 assessed: 06/16/25 Feeling nervous, anxious, or on edge: 0 = Not at all Not being able to stop or control worryin = Not at all Worrying too much about different things: 0 = Not at all Trouble relaxin = Not at all Being so restless that it is hard to sit still: 0 = Not at all Becoming easily annoyed or irritable: 0 = Not at all Feeling afraid as if something awful might happen: 0 = Not at all Total SAMIA-7 score (0-4 normal; 5-9 mild; 10-14 moderate; 15-21 severe): 0 Source: Developed by Drs. Baron Wharton, Jennifer Velásquez, Gilberto Sutherland and colleagues, with an educational jenni from [employer]. Review of Systems Const Denies body aches, Denies chills, Denies fever(s), Denies headache(s) and Denies poor appetite Eyes Reports no additional complaints ENT Denies dysphagia, Denies dizziness, Denies headache(s) and Denies odynophagia Card Denies chest pain, Denies syncope, Denies edema, Denies irregular heart rhythm, Denies lightheadedness and Denies dyspnea Resp Denies cough and Denies dyspnea GI Denies abdominal pain, Denies constipation, Denies dysphagia, Denies diarrhea, Denies nausea, Denies odynophagia and Denies vomiting Reports no additional complaints Musc Reports no additional complaints and Denies abnormal gait Skin/Breast Reports system reviewed and no additional complaints, except as documented Neuro Denies abnormal gait, Denies dizziness, Denies syncope and Denies headache(s) Psych Reports no additional complaints Physical exam (Primary Care) Vital Signs: Last Vital Signs Temp 97.3 F 06/16/25 16:10 Pulse 80 06/16/25 16:10 BP 134/76 06/16/25 16:10 Pulse Ox 98 06/16/25 16:10 Oxygen Delivery Method Room Air 06/16/25 16:10 BMI result Body Mass Index 26.4 Tobacco/Smoking Status: Tobacco use Status Tobacco use date assessed 06/16/25 06/16/25 16:11 Patient Tobacco Use Status Never used Tobacco 06/16/25 16:11 e-Cigarette/Vaping Use Never Used 06/16/25 16:11 Thrive Assessment: Date of Thrive Assessment Date Thrive assessed 06/16/25 06/16/25 16:11 Currently or been in a relationship where the following occur: No concerns reported Const General: cooperative, healthy appearing, comfortable and no acute distress Orientation/consciousness: patient oriented x3 HENMT Head: Yes normocephalic Ears: hearing grossly normal bilaterally General nose exam: Normal external nose present Eyes General: appearance normal, both eyes and all related structures Conjunctivae: conjunctivae normal Neck Neck: Yes full ROM and Yes no lymphadenopathy Resp Effort & Inspection: normal respiratory effort Auscultation: clear to auscultation bilaterally, no crackles, no rales, no rhonchi and no wheezes Cardio Rate: regular rate Rhythm: regular rhythm GI Abdomen image: 2 1. umbilical hernia Skin General skin exam: no rashes or lesions noted Neuro General: patient oriented x3 Gait exam (Neuro): Normal gait present Extrem General: Yes normal to inspection, Yes full ROM and No edema Psych Affect: normal affect Attitude: cooperative Insight: Good insight present (Psych) Judgement: Good judgement present (Psych) Coding Level of Care Code Est Pt Level 3 (91742) Diagnoses Blood pressure elevated without history of HTN R03.0 Hypercholesterolemia E78.00 Impaired fasting glucose R73.01 Overweight (BMI 25.0-29.9) E66.3 Gastroesophageal reflux disease without esophagitis K21.9 Esophagitis presence: without esophagitis Umbilical hernia K42.9 Assessment & Plan Assessment & Plan (1) Blood pressure elevated without history of HTN: Code(s): R03.0 - Elevated blood-pressure reading, without diagnosis of hypertension Category: Medical Plan: Continue on current blood pressure medication. Avoid salt intake and encourage healthy diet and regular exercise. (2) Hypercholesterolemia: Code(s): E78.00 - Pure hypercholesterolemia, unspecified Category: Medical Plan: Avoid foods that are high in cholesterol such as red meat, fried foods, eggs and baked goods. Triglyceride goal of less than 150 and LDL goal of less than 70. Continue on Rosuvastatin and Zetia. Ordered for repeat blood work, not at goal on last labs. (3) Impaired fasting glucose: Code(s): R73.01 - Impaired fasting glucose Category: Medical Plan: Decrease the amount of carbohydrates such as pasta, bread, rice, and potatoes and limit the amount of sweets. Although fruits are generally healthy they should be eaten in moderation as they are still high in sugar. Ordered for updated blood work. (4) Overweight (BMI 25.0-29.9): Code(s): E66.3 - Overweight Category: Medical Plan: Healthy diet and regular exercise is encouraged. (5) GERD (gastroesophageal reflux disease): Code(s): K21.9 - Gastro-esophageal reflux disease without esophagitis Category: Medical Qualifiers: Esophagitis presence: without esophagitis Qualified Code(s): K21.9 - Gastro-esophageal reflux disease without esophagitis Plan: Avoid trigger foods such as citrus, tomato products, soda, caffeine, spicy foods and other foods that may be irritating to your stomach. Avoid laying flat 3-4 hours after eating and elevate the head of the bed 30 degrees to prevent acid from moving into the esophagus. (6) Umbilical hernia: Code(s): K42.9 - Umbilical hernia without obstruction or gangrene Category: Medical Plan: The patient is considering surgical repair of the umbilical hernia. Insurance coverage and surgical options were discussed, with a referral to general surgery planned if the patient decides to proceed. Plan This note was constructed using voice recognition software. While every effort has been made to ensure accuracy and dog daycare provider, still areas may have been included sometimes these areas may affect the content or meeting of the given symptoms. Total time spent caring for the patient today was 20 minutes. This includes time spent before the visit reviewing the chart, time spent during the visit, and time spent after the visit and documentation. Patient was informed and verbally consented to the use of an ambient scribe for clinic note documentation during this visit. Orders: Orders 2 Vitamin B12 and Folate 06/16/25 Z13.21 - Encounter for screening for nutritional disorder Vitamin D 25-OH Total 06/16/25 Z13.21 - Encounter for screening for nutritional disorder Lipid Panel 06/16/25 E78.00 - Pure hypercholesterolemia, unspecified TSH reflex Free T4 06/16/25 Z13.29 - Encounter for screening for other suspected endocrine disorder Comprehensive Met. Panel 06/16/25 R74.01 - Elevation of levels of liver transaminase levels, Z00.00 - Encounter for general adult medical examination without abnormal findings Complete Blood Count Auto Diff 06/16/25 I25.10 - Atherosclerotic heart disease of [place] coronary artery without angina pectoris, Z00.00 - Encounter for general adult medical examination without abnormal findings
== END 2025-06-16 16:59 | disposition home or self-care (01) ==
LOC: HO.HMCH 15:58
PROVIDERS: PCP Internal Medicine
DX: R03.0 Elevated blood-pressure reading, without diagnosis of hypertension (principal); E78.00 Pure hypercholesterolemia, unspecified; R73.01 Impaired fasting glucose; E66.3 Overweight; K21.9 Gastro-esophageal reflux disease without esophagitis; K42.9 Umbilical hernia without obstruction or gangrene

== ENCOUNTER → 2025-06-16 15:57 | Outpatient (BNVA) | payer OTHER, SELFPAY | PROVIDERS: PCP Internal Medicine | DX: K21.9 Gastro-esophageal reflux disease without esophagitis (principal); E78.00 Pure hypercholesterolemia, unspecified; F41.9 Anxiety disorder, unspecified; R73.01 Impaired fasting glucose; K76.0 Fatty (change of) liver, not elsewhere classified; K42.9 Umbilical hernia without obstruction or gangrene; R03.0 Elevated blood-pressure reading, without diagnosis of hypertension; I25.10 Atherosclerotic heart disease of native coronary artery without angina pectoris; E66.3 Overweight; Z68.26 Body mass index [BMI] 26.0-26.9, adult | CPT/HCPCS: 99212 ==

== ENCOUNTER 2025-08-26 12:22 | Outpatient (AMB) | payer OTHER, SELFPAY ==
[2025-08-26 12:24] VITALS: BP 136/88; PULSE 80; O2SAT 97; BMI 27.2
--- NOTE | 2025-08-26 12:24 | AM.OFFWIN_ITS ---
Intake Vital Signs 08/26/25 12:24 Height 5 ft 9 in Weight 184 lb BMI 27.2 BP 136/88 Blood Pressure Location Lt brachial Position Sitting Pulse 80 Pulse Source Pulse Oximeter Pulse Oximetry (%) 97 Oxygen Delivery Method Room Air Intake Visit Reasons: EP-rt foot pain Intake Note: Patient presents c/o right big toe pain x2 days. Patient denies any injury. Patient Tobacco Use Status: Never used Tobacco Allergies levofloxacin (Levaquin) Allergy (Unknown, Verified 08/26/25 12:26) skin rash simvastatin Allergy (Unknown, Verified 08/26/25 12:26) elevated cpk Penicillins (PENICILLINS) Adverse Reaction (Intermediate, Verified 08/26/25 12:26) GI UPSET HPI HPI Comments History of Present Illness Details History of Present Illness - The patient is a 60-year-old individua l presenting with acute foot pain, suspected to be a first-time occurrence of gout. - The symptoms began on Sunday night, wi th pain severe enough to awaken the patient from sleep. - The pain is localized to the great toe and is described as feeling like it is broken. - Associated symptoms include warmth in the affected area, tingling, and pain upon touch. - The patient denies any recent trauma, fever, or chills. - The patient reports recent dietary con sumption of turkey, ham, and wine, but denies high intake of seafood or tuna. - Family history is positive for gout in the patient's brother. - He denies fever or chills. - He denies other joint pain. - Has no previous history of gout. - Admits to drinking alcohol due to the holidays. Physical Exam General: Cooperative, healthy appearing, comfortable, no acute distress and well developed Orientation: Patient oriented x3 Limitations: No limitations Respiratory: Normal respiratory effort and able to speak in complete sentences. Clear to auscultation bilaterally Cardiovascular: Regular rate and rhythm. Normal S1 and S2 Skin: No rashes or lesions noted. Erythema noted to the right great toe at the MCP joint. No streaking noted. Neuro: Sensation is intact. Extremities: FROM of the toes on the right foot. TTP of the right great toe MCP. Strength is 5/5 on the LE. Ambulates with steady gait. Patient was informed and verbally consented to the use of an ambient scribe for clinic note documentation during this visit. [facility] Medical History Fatty liver Back pain Cough Allergic rhinitis Overweight (BMI 25.0-29.9) Reactive airway disease Allergic rhinitis Anxiety Vitamin D deficiency GERD (gastroesophageal reflux disease) Peripheral vascular disease Hypercholesterolemia Surgical History H/O shoulder surgery History of varicose veins History of repair of rotator cuff History of elbow surgery History of tonsillectomy and adenoidectomy Family History Father History of coronary artery bypass graft [place]coma Mother Anxiety Paternal Grandfather History of coronary artery bypass graft Paternal Uncle History of coronary artery bypass graft Other Mental health disorder Social History Housing: House Alcohol intake: current Alcohol intake frequency: a few times a month Comment: 2-3 beers a day Patient Tobacco Use Status: Never used Tobacco e-Cigarette/Vaping Use: Never Used Second Hand Smoke Exposure: No service: No Current occupational status: employed Current occupational exposures/hazards: No Cognitive needs: No Hearing needs: Yes Vision needs: Yes Review of Systems Const All systems reviewed & are unremarkable except as noted in HPI and below Physical Exam Vital Signs: Last Vital Signs Pulse 80 08/26/25 12:24 BP 136/88 08/26/25 12:24 Pulse Ox 97 08/26/25 12:24 Oxygen Delivery Method Room Air 08/26/25 12:24 BMI result Body Mass Index 27.2 Office Meds prednisone 20 mg tablet Performing Provider: Loulou Cooper PA-C Performing Location: [facility] Administered by: Loulou Cooper PA-C on 08/26/25 13:42 Dose Route Admin Location Dispensed Lot Number Expiration Date [employer] 40 mg PO 2 tab [id number] 12/22/25 Assessment & Plan Assessment & Plan (1) Pain of right great toe: Code(s): M79.674 - Pain in right toe(s) Plan Most likely gout plan - The patient's presentation is highly suggestive of acute gout, likely triggered by recent diet and/or alcohol. - A blood test for uric acid level will be performed to confirm the diagnosis, and the results will be communicated to the patient via phone call. - Treatment will be initiated empirically based on the clinical diagnosis. - An initial dose of prednisone 40 mg (two 20 mg tablets) was administered in the clinic. - A prescription for a 5-day course of prednisone to be taken once daily will be sent to the patient's pharmacy. - The patient was educated that gout is a form of arthritis, is often triggered by dietary factors such as red meats and alcohol (especially wine and beer), and can be hereditary. - The patient was advised that prednisone may cause jitteriness or shakiness. - Naproxen BID as needed for pain - will call with the results - follow up with PCP Orders: Orders AMB Prednisone Adult Dose Today M10.9 - Gout, unspecified Uric Acid Today M79.674 - Pain in right toe(s) Medications: New prednisone 40 mg (2 x 20 mg) PO DAILY 10 tabs 0RF 5 days naproxen 500 mg PO Q12H PRN 20 tabs 0RF pain 7 days Coding Level of Care Code Est Pt Level 3 (07522) Diagnoses Pain of right great toe M79.674
== END 2025-08-26 12:54 | disposition home or self-care (01) ==
PROVIDERS: PCP Internal Medicine; Visit Provider Physician Assistant Medical
DX: M10.9 Gout, unspecified (principal); M79.674 Pain in right toe(s)

== ENCOUNTER → 2025-08-26 12:22 | Outpatient (BNVA) | payer OTHER, SELFPAY | PROVIDERS: PCP Internal Medicine; Visit Provider Physician Assistant Medical | DX: M79.674 Pain in right toe(s) (principal); M10.9 Gout, unspecified | CPT/HCPCS: 99212 ==